=== PATIENT | male | born 1955 | race Caucasian/White ===

== ENCOUNTER 2017-03-05 13:43 | Emergency (ER) | payer OTHER ==
[~2017-03-05] VITALS: Ht 175.3 cm; Wt 100.0 kg
[~2017-03-05 13:43] MED LIST: ALBU8I INH; ALLO100T PO; ASPI81TA45 PO; BACL10TA PO; BUPR-197 PO; CLIN1CAP5 PO; DUONI NEB; FURO1TAB93 PO; GLUC10TA3 PO; METO100T PO; NAPR-576 PO; NOVONP2 SQ; OMEP20TA PO; OXYC5 PO; REST30CA PO; SERT-129 PO; SIMV20 PO; SYMB80AE INH; ZYRT10TA12 PO
[2017-03-05 13:46] VITALS: BP 161/73; PULSE 61; RESP 13; TEMP 97.4
[2017-03-05 14:53] VITALS: BP 143/74; PULSE 57; RESP 19; O2SAT 97
[2017-03-05] MEDS ORDERED: METO100T PO ×2 (15:08→15:18)
[2017-03-05] MEDS ORDERED: BACL10TA PO ×2 (15:08→15:18)
[2017-03-05] MEDS ORDERED: ALLO100T PO ×2 (15:08→15:18)
[2017-03-05] MEDS ORDERED: SERT-129 PO (15:08)
[2017-03-05] MEDS ORDERED: FURO1TAB93 PO (15:08)
[2017-03-05] MEDS ORDERED: ALBU8I INH (15:08)
[2017-03-05] MEDS ORDERED: OXYC5 PO (15:08)
[2017-03-05] MEDS ORDERED: GLUC10TA3 PO (15:08)
[2017-03-05] MEDS ORDERED: ASPI81TA45 PO (15:08)
[2017-03-05] MEDS ORDERED: ZYRT10TA12 PO (15:08)
[2017-03-05] MEDS ORDERED: OMEP20TA PO (15:08)
[2017-03-05] MEDS ORDERED: REST30CA PO ×2 (15:08→15:18)
[2017-03-05] MEDS ORDERED: NOVONP2 SQ ×2 (15:08→15:18)
[2017-03-05] MEDS ORDERED: SIMV20 PO (15:08)
[2017-03-05] MEDS ORDERED: SYMB80AE INH ×2 (15:08→15:18)
[2017-03-05] MEDS ORDERED: NAPR-576 PO (15:08)
[2017-03-05] MEDS ORDERED: BUPR-197 PO (15:08)
[2017-03-05] MEDS ORDERED: ASPI81TA11 PO (15:18)
[2017-03-05] MEDS ORDERED: OXYC1CAP PO (15:18)
[2017-03-05] MEDS ORDERED: PRIL20TA2 PO (15:18)
[2017-03-05] MEDS ORDERED: BUPR100T4 PO (15:18)
[2017-03-05] MEDS ORDERED: GLIP10TA6 PO (15:18)
[2017-03-05] MEDS ORDERED: ZOLO100T PO (15:18)
[2017-03-05] MEDS ORDERED: CETI10 PO (15:18)
[2017-03-05] MEDS ORDERED: ZOCO10TA PO (15:18)
[2017-03-05] MEDS ORDERED: VENTAER INH (15:18)
[2017-03-05] MEDS ORDERED: NAPR500 PO (15:18)
--- NOTE | 2017-03-05 15:20 | PD ---
HPI Chief Complaint: Abnormal Results Time Seen by Provider: 14:34 Travel History International Travel<30 days: No Contact w/Intl Traveler<30days: No Traveled to known affect area: No History of Present Illness HPI 61-year-old male came to the emergency room with history of abnormal blood test result that was told to him by his doctor's office from [facility] after he had his blood drawn this morning. He was told that his potassium was 6.4 and that he should go to the emergency room. Patient says he feels otherwise fine. He does not have any history of kidney disease that he knows of. He does have history of diabetes. However he says his sugar has been under control. He is not on any potassium supplements. His vital signs were within acceptable limits. [facility] Past Medical History Narrative Medical List of his past medical, surgical, social and family history is reviewed from the nursing note. Hx Anticoagulant Therapy: Yes (ASPIRIN) Arthritis: Yes Asthma: Yes Autoimmune Disease: No Blood Disorders: No Anxiety: No Depression: Yes Heart Rhythm Problems: Yes Cancer: No Cardiac Catheterization: Yes (2004) Cardiovascular Problems: Yes High Cholesterol: No Chemotherapy: No Chest Pain: Yes Congestive Heart Failure: Yes COPD: Yes Cerebrovascular Accident: No Diabetes: Yes Patient Takes Glucophage: Yes Diminished Hearing: No Endocrine: Yes Gastrointestinal Disorders: Yes GERD: No Glaucoma: No Genitourinary: No Headaches: No Hepatitis: Yes (TYPE C- treated) Hiatal Hernia: No Hypertension: Yes Immune Disorder: No Implanted Vascular Access Dvce: Yes Kidney Stones: No Musculoskeletal: Yes Neurologic: Yes Psychiatric: Yes Reproductive: No Respiratory: Yes Migraines: No Myocardial Infarction: Yes Radiation Therapy: No Renal Failure: No Seizures: Yes Sickle Cell Disease: No Sleep Apnea: No Thyroid Disease: No Ulcer: No PNEUMOCCOCAL Vaccine (Year): 2 Past Surgical History Abdominal Surgery: No AICD: No Appendectomy: No Arteriovenous Shunt: No Body Medical Devices: rods and cage in back Cardiac Surgery: Yes (CABG X6 VESSEL IN 2004 "AROUND " ) Cholecystectomy: No Coronary Artery Bypass Graft: Yes (X 6 IN 2004) Ear Surgery: No Eye Surgery: No Genitourinary Surgery: No Gynecologic Surgery: No Insulin Pump: No Joint Replacement: Yes (RODS AND CAGE IN LUMBAR SECTION OF BACK ) Neurologic Surgery: Yes (BACK SURGERY X2 LUMBAR REGION) Oral Surgery: No Pacemaker: No Thoracic Surgery: No Other Surgery: Yes Social History Alcohol Use: No Tobacco Use: No Substance Use: No Allergies-Medications (Allergen,Severity, Reaction): Coded Allergies: morphine (Unverified Allergy, Severe, Itching, 03/05/17) ITCHING Comments List of his allergies reviewed from the nursing note. Reported Meds & Prescriptions Reported Meds & Active Scripts Active Reported Oxycodone (Oxycodone HCl) 10 Mg Tab 15 Mg PO Q8H PRN Restoril (Temazepam) 30 Mg Cap 30 Mg PO HS Zocor (Simvastatin) 10 Mg Tab 10 Mg PO HS Zoloft (Sertraline HCl) 100 Mg Tab 200 Mg PO BID Prilosec (Omeprazole Magnesium) 20 Mg Tab 20 Mg PO DAILY Naprosyn (Naproxen) 500 Mg Tab 500 Mg PO BID Metoprolol Tartrate 100 Mg Tab 100 Mg PO BID Novolin N Inj (Insulin Human NPH) 100 Unit/Ml Inj 26 Units SQ BID Glipizide 10 Mg Tab 10 Mg PO DAILY Take 30 minutes before a meal Cetirizine (Cetirizine HCl) 10 Mg Tab 10 Mg PO DAILY Bupropion HCl 100 Mg Tab 200 Mg PO BID Symbicort Inh (Budesonide/Formoterol Fumarate) 80-4.5 Mcg/Act Aero 2 Puff INH Q12HR Baclofen 10 Mg Tab 10 Mg PO BID Aspirin EC (Aspirin) 81 Mg Tabdr 81 Mg PO DAILY Allopurinol 100 Mg Tab 100 Mg PO DAILY Ventolin Hfa 18 GM Inh (Albuterol Sulfate) 90 Mcg/Act Aer 2 Puff INH TID PRN Narrative Medication List of his home medications reviewed from the nursing note. Review of Systems Except as stated in HPI: all other systems reviewed are Neg Physical Exam Narrative GENERAL: Awake, alert, no obvious distress SKIN: Focused skin assessment warm/dry. HEAD: Atraumatic. Normocephalic. EYES: Pupils equal and round. No scleral icterus. No injection or drainage. ENT: No nasal bleeding or discharge. Mucous membranes pink and moist. NECK: Trachea midline. No JVD. CARDIOVASCULAR: Regular rate and rhythm. No murmur appreciated. RESPIRATORY: No accessory muscle use. Clear to auscultation. Breath sounds equal bilaterally. GASTROINTESTINAL: Abdomen soft, non-tender, nondistended. Hepatic and splenic margins not palpable. MUSCULOSKELETAL: No obvious deformities. No clubbing. No cyanosis. 1+ pitting edema bilaterally. NEUROLOGICAL: Awake and alert. No obvious cranial nerve deficits. Motor grossly within normal limits. Normal speech. PSYCHIATRIC: Appropriate mood and affect; insight and judgment normal. Data Data Last Documented VS Vital Signs Date Time Temp Pulse Resp B/P (MAP) Pulse Ox O2 Delivery O2 Flow Rate FiO2 03/05/17 20:46 03/05/17 14:53 57 19 97 Room Air 03/05/17 13:46 97.4 Orders Orders Electrocardiogram (03/05/17 14:09) Complete Blood Count With Diff (03/05/17 14:09) Basic Metabolic Panel (Bmp) (03/05/17 14:09) Ckmb (Isoenzyme) Profile (03/05/17 14:09) Troponin I (03/05/17 14:09) CKMB (03/05/17 14:53) CKMB% (03/05/17 14:53) Calcium Gluconate Inj (Calcium Gluconate (03/05/17 16:45) Sodium Polysty Sulfate Liq (Kayexalate L (03/05/17 16:45) Insulin Human Regular Inj (Novolin R Inj (03/05/17 16:45) Dextrose 50% In Evie (Vial) Inj (D50w (Vi (03/05/17 16:45) Acetamin-Hydrocod 325-5 Mg (Stanton 5-325 (03/05/17 16:45) Dextrose 50% In Evie (Syr) Inj (D50w (Syr (03/05/17 16:51) Dextrose 50% In Evie (Syr) Inj (D50w (Syr (03/05/17 17:15) Dextrose 50% In Evie (Syr) Inj (D50w (Syr (03/05/17 17:13) Potassium, Serum (K) (03/05/17 18:01) Blood Glucose (03/05/17 18:01) Dextrose 50% In Evie (Syr) Inj (D50w (Syr (03/05/17 18:30) Labs Laboratory Tests Test 03/05/17 14:53 03/05/17 19:31 White Blood Count 10.6 TH/MM3 Red Blood Count 4.58 MIL/MM3 Hemoglobin 13.4 GM/DL Hematocrit 40.6 % Mean Corpuscular Volume 88.6 FL Mean Corpuscular Hemoglobin 29.3 PG Mean Corpuscular Hemoglobin Concent 33.0 % Red Cell Distribution Width 16.0 % Platelet Count 263 TH/MM3 Mean Platelet Volume 10.1 FL Neutrophils (%) (Auto) 65.0 % Lymphocytes (%) (Auto) 21.4 % Monocytes (%) (Auto) 7.2 % Eosinophils (%) (Auto) 5.6 % Basophils (%) (Auto) 0.8 % Neutrophils # (Auto) 6.9 TH/MM3 Lymphocytes # (Auto) 2.3 TH/MM3 Monocytes # (Auto) 0.8 TH/MM3 Eosinophils # (Auto) 0.6 TH/MM3 Basophils # (Auto) 0.1 TH/MM3 CBC Comment DIFF FINAL Differential Comment Blood Urea Nitrogen 28 MG/DL Creatinine 1.12 MG/DL Random Glucose 135 MG/DL Calcium Level 9.3 MG/DL Sodium Level 134 MEQ/L Potassium Level 5.5 MEQ/L 4.7 MEQ/L Chloride Level 102 MEQ/L Carbon Dioxide Level 23.2 MEQ/L Anion Gap 9 MEQ/L Estimat Glomerular Filtration Rate 67 ML/MIN Total Creatine Kinase 131 U/L Creatine Kinase MB 4.9 NG/ML Troponin I LESS THAN 0.02 NG/ML MDM Medical Decision Making Medical Screen Exam Complete: Yes Emergency Medical Condition: Yes Medical Record Reviewed: Yes Interpretation(s) Twelve-lead EKG was reviewed by me. Normal sinus rhythm, normal axis, nonspecific ST-T wave changes, bradycardia. Heart rate of 57 bpm. Differential Diagnosis Hyperkalemia, lab error, acute renal failure Narrative Course 5:11 PM blood test results of come back. Potassium is mildly elevated. I have ordered 1 g of calcium gluconate, 10 units of IV insulin and 50 mL of D50. Patient's potassium and glucose would be repeated after 1 hour of administration. If they have return to normal level he will be discharged home. Procedures EKG Prior to Arrival: No Diagnosis Primary Impression: Hyperkalemia Yovani Baker MD Mar 05, 2017 15:20
[2017-03-05 15:58] LABS: AUTOMATED NEUTROPHIL # 6.9 TH/MM3 (1.8-7.7); BASOPHIL # 0.1 TH/MM3 (0-0.2); BASOPHIL % 0.8 % (0.0-2.0); EOSINOPHIL # 0.6 TH/MM3 (0-0.4); EOSINOPHIL % 5.6 % (0.0-4.0); HEMATOCRIT 40.6 % (39.0-51.0); HEMO FLAGS DIFF FINAL; LYMPH % 21.4 % (9.0-44.0); LYMPHOCYTE # 2.3 TH/MM3 (1.0-4.8); MEAN CELL VOLUME 88.6 FL (80.0-100.0); MEAN CORPUSCULAR HEMOGLOBIN 29.3 PG (27.0-34.0); MONO % 7.2 % (0.0-8.0); PLATELET COUNT 263 TH/MM3 (150-450); RED BLOOD COUNT 4.58 MIL/MM3 (4.50-5.90); WHITE BLOOD COUNT 10.6 TH/MM3 (4.0-11.0)
[2017-03-05 16:20] LABS: ANION GAP 9 MEQ/L (5-15); BICARBONATE 23.2 MEQ/L (21.0-32.0); BLOOD UREA NITROGEN 28 MG/DL (7-18); CHLORIDE 102 MEQ/L (98-107); GLOMERULAR FILTRATION RATE 67 ML/MIN (>89); POTASSIUM 5.5 MEQ/L (3.5-5.1); SODIUM (NA) 134 MEQ/L (136-145)
[2017-03-05 16:23] LABS: CREATINE KINASE 131 U/L (39-308)
[2017-03-05 16:35] LABS: CKMB 4.9 NG/ML (0.5-3.6)
[2017-03-05] MEDS ORDERED: OXYC-395 PO (16:36)
[2017-03-05] MEDS ORDERED: SODIUM POLYSTYRENE SULFONATE SUSP 15 GM/60 ML CUP PO ONE (16:45)
[2017-03-05] MEDS ORDERED: CALCIUM GLUCONATE INJ 1 GM in DEXTROSE 5% IN WATER 100ML INJ 100 ML IV ONE ×2 (16:45)
[2017-03-05] MEDS ORDERED: DEXTROSE 50% IN WATER 50 ML VIAL(D50) IV PUSH ONE (16:45)
[2017-03-05] MEDS ORDERED: ACETAMINOPHEN/HYDROcodone 325 MG/5 MG TAB PO ONE (16:45)
[2017-03-05] MEDS ORDERED: INSULIN HUMAN REGULAR 1,000 UNITS/10 ML VIAL IV PUSH ONE (16:45)
[2017-03-05] MEDS ORDERED: DEXTROSE 50% IN WATER 50 ML SYRINGE ONE ×2 (16:51→17:13)
[2017-03-05] MEDS ORDERED: DEXTROSE 50% IN WATER 50 ML SYRINGE IV ONE ×2 (17:15→18:30)
--- NOTE | 2017-03-05 19:03 | PD ---
Physical Exam Date Seen by Provider: Mar 05, 2017 Time Seen by Provider: 19:00 Narrative The patient is a 61-year-old male was initially evaluated by the previous physician, Dr. Baker. Please refer to the initial history, physical, diagnostic evaluation, and treatment modality plan. The patient was signed out at 7 PM with repeat potassium pending. (Charlie Kang MD) Data Data Last Documented VS Vital Signs Date Time Temp Pulse Resp B/P (MAP) Pulse Ox O2 Delivery O2 Flow Rate FiO2 03/05/17 14:53 57 19 143/74 (97) 97 Room Air 03/05/17 13:46 97.4 (Doretha Pineda) Orders Orders Electrocardiogram (03/05/17 14:09) Complete Blood Count With Diff (03/05/17 14:09) Basic Metabolic Panel (Bmp) (03/05/17 14:09) Ckmb (Isoenzyme) Profile (03/05/17 14:09) Troponin I (03/05/17 14:09) CKMB (03/05/17 14:53) CKMB% (03/05/17 14:53) Calcium Gluconate Inj (Calcium Gluconate (03/05/17 16:45) Sodium Polysty Sulfate Liq (Kayexalate L (03/05/17 16:45) Insulin Human Regular Inj (Novolin R Inj (03/05/17 16:45) Dextrose 50% In Evie (Vial) Inj (D50w (Vi (03/05/17 16:45) Acetamin-Hydrocod 325-5 Mg ([place]wick 5-325 (03/05/17 16:45) Dextrose 50% In Evie (Syr) Inj (D50w (Syr (03/05/17 16:51) Dextrose 50% In Evie (Syr) Inj (D50w (Syr (03/05/17 17:15) Dextrose 50% In Evie (Syr) Inj (D50w (Syr (03/05/17 17:13) Potassium, Serum (K) (03/05/17 18:01) Blood Glucose (03/05/17 18:01) Dextrose 50% In Evie (Syr) Inj (D50w (Syr (03/05/17 18:30) (Doretha Pineda) Labs Laboratory Tests Test 03/05/17 14:53 03/05/17 19:31 White Blood Count 10.6 TH/MM3 Red Blood Count 4.58 MIL/MM3 Hemoglobin 13.4 GM/DL Hematocrit 40.6 % Mean Corpuscular Volume 88.6 FL Mean Corpuscular Hemoglobin 29.3 PG Mean Corpuscular Hemoglobin Concent 33.0 % Red Cell Distribution Width 16.0 % Platelet Count 263 TH/MM3 Mean Platelet Volume 10.1 FL Neutrophils (%) (Auto) 65.0 % Lymphocytes (%) (Auto) 21.4 % Monocytes (%) (Auto) 7.2 % Eosinophils (%) (Auto) 5.6 % Basophils (%) (Auto) 0.8 % Neutrophils # (Auto) 6.9 TH/MM3 Lymphocytes # (Auto) 2.3 TH/MM3 Monocytes # (Auto) 0.8 TH/MM3 Eosinophils # (Auto) 0.6 TH/MM3 Basophils # (Auto) 0.1 TH/MM3 CBC Comment DIFF FINAL Differential Comment Blood Urea Nitrogen 28 MG/DL Creatinine 1.12 MG/DL Random Glucose 135 MG/DL Calcium Level 9.3 MG/DL Sodium Level 134 MEQ/L Potassium Level 5.5 MEQ/L 4.7 MEQ/L Chloride Level 102 MEQ/L Carbon Dioxide Level 23.2 MEQ/L Anion Gap 9 MEQ/L Estimat Glomerular Filtration Rate 67 ML/MIN Total Creatine Kinase 131 U/L Creatine Kinase MB 4.9 NG/ML Troponin I LESS THAN 0.02 NG/ML (Doretha Pineda) [facility] Medical Record Reviewed: Yes Supervised Visit with ALVAREZ: No Interpretation(s) EKG revealed sinus bradycardia with a heart rate of 57. Q wave noted in lead 3. No Peaked T waves noted. Laboratory Tests Test 03/05/17 14:53 03/05/17 19:31 White Blood Count 10.6 TH/MM3 Red Blood Count 4.58 MIL/MM3 Hemoglobin 13.4 GM/DL Hematocrit 40.6 % Mean Corpuscular Volume 88.6 FL Mean Corpuscular Hemoglobin 29.3 PG Mean Corpuscular Hemoglobin Concent 33.0 % Red Cell Distribution Width 16.0 % Platelet Count 263 TH/MM3 Mean Platelet Volume 10.1 FL Neutrophils (%) (Auto) 65.0 % Lymphocytes (%) (Auto) 21.4 % Monocytes (%) (Auto) 7.2 % Eosinophils (%) (Auto) 5.6 % Basophils (%) (Auto) 0.8 % Neutrophils # (Auto) 6.9 TH/MM3 Lymphocytes # (Auto) 2.3 TH/MM3 Monocytes # (Auto) 0.8 TH/MM3 Eosinophils # (Auto) 0.6 TH/MM3 Basophils # (Auto) 0.1 TH/MM3 CBC Comment DIFF FINAL Differential Comment Blood Urea Nitrogen 28 MG/DL Creatinine 1.12 MG/DL Random Glucose 135 MG/DL Calcium Level 9.3 MG/DL Sodium Level 134 MEQ/L Potassium Level 5.5 MEQ/L 4.7 MEQ/L Chloride Level 102 MEQ/L Carbon Dioxide Level 23.2 MEQ/L Anion Gap 9 MEQ/L Estimat Glomerular Filtration Rate 67 ML/MIN Total Creatine Kinase 131 U/L Creatine Kinase MB 4.9 NG/ML Troponin I LESS THAN 0.02 NG/ML Differential Diagnosis Differential diagnosis includes hyperkalemia, hemolysis, lab error, medication side effect, acute renal insufficiency, rhabdomyolysis. Narrative Course The patient was initially evaluated by the previous physician, Dr. Baker. Please refer to the initial history, physical, diagnostic evaluation, and treatment modality plan. The patient was signed out at 7 PM with repeat potassium level pending. I reviewed the labs, there was no obvious source of the patient's hyperkalemia from medications. The patient's repeat potassium was 4.7, patient is stable for outpatient follow-up. (Charlie Kang MD) Diagnosis Primary Impression: Hyperkalemia Referrals: Primary Care Physician Patient Instructions: General Instructions, Hyperkalemia (ED) Additional Instruction: Follow-up with your primary care provider Return immediately with any acute worsening of symptoms Disposition: 01 DISCHARGE HOME Condition: Stable Charlie Kang MD Mar 05, 2017 19:03 Doretha Pineda Mar 05, 2017 20:43
--- NOTE | 2017-03-06 19:58 | EKG ---
Date Performed: 03/05/2017 Time Performed: 15:16:10 PTAGE: 61 years EKG: SINUS BRADYCARDIA POSSIBLE INFERIOR MYOCARDIAL INFARCTION BORDERLINE ECG PREVIOUS TRACING : 09/11/2011 13.42 Compared to prior tracing no significant change DOCTOR: Vanessa Hawkins Interpretating Date/Time 03/06/2017 19:56:38
== END 2017-03-05 23:50 | disposition home or self-care (01) ==
LOC: NEPE 13:43
DX: E87.5 Hyperkalemia (principal); I50.9 Heart failure, unspecified; I11.0 Hypertensive heart disease with heart failure; J44.9 Chronic obstructive pulmonary disease, unspecified; E11.9 Type 2 diabetes mellitus without complications; I25.2 Old myocardial infarction; Z95.1 Presence of aortocoronary bypass graft; Z79.84 Long term (current) use of oral hypoglycemic drugs; R00.1 Bradycardia, unspecified; Z79.4 Long term (current) use of insulin
CPT/HCPCS: 80048; 82550; 82552; 84132; 84484; 85025; 93005; 96365; 96375; 96376; 99284; J0610; J1815

== ENCOUNTER 2017-04-03 13:57 | Emergency (ER) | payer OTHER ==
[~2017-04-03 13:57] MED LIST changes: -ALBU8I INH; +ASPI81TA11 PO; -ASPI81TA45 PO; -BUPR-197 PO; +BUPR100T4 PO; +CETI10 PO; -CLIN1CAP5 PO; -DUONI NEB; -FURO1TAB93 PO; +GLIP10TA6 PO; -GLUC10TA3 PO; -NAPR-576 PO; +NAPR500 PO; -OMEP20TA PO; +OXYC-395 PO; -OXYC5 PO; +PRIL20TA2 PO; -SERT-129 PO; -SIMV20 PO; +VENTAER INH; +ZOCO10TA PO; +ZOLO100T PO; -ZYRT10TA12 PO
[2017-04-03 14:04] VITALS: BP 177/77; PULSE 78; RESP 16; TEMP 98.5; O2SAT 97
[2017-04-03] MEDS ORDERED: KETOROLAC TROMETHAMINE 60 MG/2 ML (IM) VIAL IM ONE (14:30)
[2017-04-03] MEDS ORDERED: HYDROmorphone HCL PF 1 MG/ML VIAL IM ONE (14:30)
--- NOTE | 2017-04-03 14:50 | RADRPT ---
EXAM DATE/TIME: 04/03/2017 14:45 [facility] COMPARISON: SPINE LUMBAR LTD (AP & LAT), October 10, 2015, 11:28. INDICATIONS : Low back pain. Patient complains of low back pain, bilateral hip pain and shooting pain that runs aparna n his legs. MEDICAL HISTORY : None. SURGICAL HISTORY : Back fusion, lumbar. ENCOUNTER: Initial ACUITY: 1 day PAIN SCORE: 10/10 LOCATION: Bilateral Back, hip, and leg pain. FINDINGS: Two view examination was performed. There are five non-rib bearing vertebral bodies. Extensive bilat eral transpedicular fixation from L2-S1 and bony fusion, unchanged. Degenerative disc disease at T12- L1 and L1-2 with loss of disc height and marginal spurring. No fracture or listhesis. Hardware appear s to be intact. Atherosclerotic calcification of the regional vasculature. CONCLUSION: 1. Extensive transpedicular fixation and bony fusion bilaterally from L2-S1. 2. Degenerative disc disease most prominent at the thoracolumbar junction and L1-2, the superior kori on segment. 3. Severe atherosclerotic calcification of the regional vasculature. Daryl Sparks MD on April 03, 2017 at 14:44 Board Certified Radiologist. This report was verified electronically.
--- NOTE | 2017-04-03 15:08 | PD ---
HPI Chief Complaint: Pain: Acute or Chronic Time Seen by Provider: 14:09 Travel History International Travel<30 days: No Contact w/Intl Traveler<30days: No Traveled to known affect area: No History of Present Illness HPI This is a 61-year-old male who has a history of low back surgery many years ago who presents to the emergency department with 4 days of increasing low back pain described as in both of his buttock areas radiating down both legs, constant, severe, worse when getting from sitting to standing. He denies any numbness or weakness in his legs. He's had no urinary incontinence or retention and no bowel incontinence. He says this feels similar to his chronic low back pain prior to his surgeries. He has had no recent injury. He takes oxycodone for pain but that's not been helping. PFSH Past Medical History Hx Anticoagulant Therapy: Yes (ASPIRIN) Arthritis: Yes Asthma: Yes Autoimmune Disease: No Blood Disorders: No Anxiety: No Depression: Yes Heart Rhythm Problems: Yes Cancer: No Cardiac Catheterization: Yes (2004) Cardiovascular Problems: Yes High Cholesterol: No Chemotherapy: No Chest Pain: Yes Congestive Heart Failure: Yes COPD: Yes Cerebrovascular Accident: No Diabetes: Yes Patient Takes Glucophage: Yes Diminished Hearing: No Endocrine: Yes Gastrointestinal Disorders: Yes GERD: No Glaucoma: No Genitourinary: No Headaches: No Hepatitis: Yes (TYPE C- treated) Hiatal Hernia: No Heparin Induced Thrombocytopen: No Hypertension: Yes Immune Disorder: No Implanted Vascular Access Dvce: Yes Kidney Stones: No Musculoskeletal: Yes Neurologic: Yes Psychiatric: Yes Reproductive: No Respiratory: Yes Migraines: No Myocardial Infarction: Yes Radiation Therapy: No Renal Failure: No Seizures: Yes Sickle Cell Disease: No Sleep Apnea: No Thyroid Disease: No Ulcer: No PNEUMOCCOCAL Vaccine (Year): 2 Past Surgical History Abdominal Surgery: No AICD: No Appendectomy: No Arteriovenous Shunt: No Body Medical Devices: rods and cage in back Cardiac Surgery: Yes (CABG X6 VESSEL IN 2004 "AROUND " ) Cholecystectomy: No Coronary Artery Bypass Graft: Yes (X 6 IN 2004) Ear Surgery: No Eye Surgery: No Genitourinary Surgery: No Gynecologic Surgery: No Insulin Pump: No Joint Replacement: Yes (RODS AND CAGE IN LUMBAR SECTION OF BACK ) Neurologic Surgery: Yes (BACK SURGERY X2 LUMBAR REGION) Oral Surgery: No Pacemaker: No Thoracic Surgery: No Other Surgery: Yes Social History Alcohol Use: No Tobacco Use: No Substance Use: No Allergies-Medications (Allergen,Severity, Reaction): Coded Allergies: morphine (Verified Allergy, Severe, Itching, 04/03/17) ITCHING Reported Meds & Prescriptions Reported Meds & Active Scripts Active Reported Oxycodone (Oxycodone HCl) 10 Mg Tab 15 Mg PO Q8H PRN Restoril (Temazepam) 30 Mg Cap 30 Mg PO HS Zocor (Simvastatin) 10 Mg Tab 10 Mg PO HS Zoloft (Sertraline HCl) 100 Mg Tab 200 Mg PO BID Prilosec (Omeprazole Magnesium) 20 Mg Tab 20 Mg PO DAILY Naprosyn (Naproxen) 500 Mg Tab 500 Mg PO BID Metoprolol Tartrate 100 Mg Tab 100 Mg PO BID Novolin N Inj (Insulin Human NPH) 100 Unit/Ml Inj 26 Units SQ BID Glipizide 10 Mg Tab 10 Mg PO DAILY Take 30 minutes before a meal Cetirizine (Cetirizine HCl) 10 Mg Tab 10 Mg PO DAILY Bupropion HCl 100 Mg Tab 200 Mg PO BID Symbicort Inh (Budesonide/Formoterol Fumarate) 80-4.5 Mcg/Act Aero 2 Puff INH Q12HR Baclofen 10 Mg Tab 10 Mg PO BID Aspirin EC (Aspirin) 81 Mg Tabdr 81 Mg PO DAILY Allopurinol 100 Mg Tab 100 Mg PO DAILY Ventolin Hfa 18 GM Inh (Albuterol Sulfate) 90 Mcg/Act Aer 2 Puff INH TID PRN Review of Systems Except as stated in HPI: all other systems reviewed are Neg Physical Exam Narrative GENERAL:Well appearing, no acute distress SKIN: Focused skin assessment warm and dry. HEAD: Atraumatic. Normocephalic. EYES: Pupils equal and round. No injection or drainage. ENT: Moist mucous membranes NECK: Trachea midline. CARDIOVASCULAR: Regular rate and rhythm. No murmur appreciated. RESPIRATORY: Clear to auscultation. Breath sounds equal bilaterally. GASTROINTESTINAL: Abdomen soft, non-tender, nondistended. MUSCULOSKELETAL: Tender to palpation over the vertebral lower lumbar spine NEUROLOGICAL: Awake and alert. No obvious cranial nerve deficits. 5 out of 5 strength in the bilateral lower extremities with grossly intact sensation. PSYCHIATRIC: Appropriate mood and affect; insight and judgment normal. Data Data Last Documented VS Vital Signs Date Time Temp Pulse Resp B/P (MAP) Pulse Ox O2 Delivery O2 Flow Rate FiO2 04/03/17 14:04 98.5 78 16 177/77 (110) 97 Room Air Orders Orders Ketorolac Inj (Toradol Inj) (04/03/17 14:30) Hydromorphone Pf Inj (Dilaudid Pf Inj) (04/03/17 14:30) Spine, Lumbar - Ltd (Ap & Lat) (04/03/17 ) MDM Medical Decision Making Medical Screen Exam Complete: Yes Emergency Medical Condition: Yes Interpretation(s) Afebrile, no tachycardia, hypertensive Last 24 hours Impressions Lumbar Spine X-Ray 04/03/17 0000 Signed Impressions: Service Date/Time: Monday, April 03, 2017 14:45 - CONCLUSION: 1. Extensive transpedicular fixation and bony fusion bilaterally from L2-S1. 2. Degenerative disc disease most prominent at the thoracolumbar junction and L1-2 , the superior motion segment. 3. Severe atherosclerotic calcification of the regional vasculature. Daryl Sparks MD Differential Diagnosis Degenerative disc disease, acute disc herniation, cauda equina syndrome Narrative Course This is a 61-year-old male who presents to the emergency department with low back pain that started several days ago. He has a history of chronic back pain and has had a fusion in the past. Patient has a normal neurologic exam and has no red flag symptoms times for cauda equina syndrome. Patient was given IM hydromorphone and Toradol. I think he can be discharged home with continued pain control. Diagnosis Primary Impression: Low back pain Qualified Codes: M54.5 - Low back pain Referrals: Sam Elizabeth MD Patient Instructions: General Instructions Additional Instructions: If you develop weakness of your legs, difficulty walking, numbness of your legs or your genital or rectal area, loss of your bowel or bladder, or difficulty urinating return to the emergency department immediately. Followup with your primary care physician in one week if your symptoms have not improved. Med/Other Pt SpecificInfo: No Change to Meds Disposition: 01 DISCHARGE HOME Condition: Stable Jessica Natarajan MD Apr 03, 2017 15:08
== END 2017-04-03 15:49 | disposition home or self-care (01) ==
LOC: NEPD 13:57
DX: M54.5 Low back pain (principal); M79.604 Pain in right leg; M79.605 Pain in left leg; E11.9 Type 2 diabetes mellitus without complications; I10 Essential (primary) hypertension; I25.2 Old myocardial infarction; Z79.82 Long term (current) use of aspirin; Z79.4 Long term (current) use of insulin; Z87.39 Personal history of other diseases of the musculoskeletal system and connective tissue; Z87.09 Personal history of other diseases of the respiratory system; Z86.59 Personal history of other mental and behavioral disorders; Z86.79 Personal history of other diseases of the circulatory system; Z87.19 Personal history of other diseases of the digestive system; Z86.19 Personal history of other infectious and parasitic diseases; Z86.69 Personal history of other diseases of the nervous system and sense organs
CPT/HCPCS: 72100; 96372; 99284; J1170; J1885

== ENCOUNTER 2017-12-17 04:06 | Inpatient (IN) | payer OTHER ==
[2017-12-17] VITALS (31 sets, daily range): BP systolic 78–204; BP diastolic 44–101; PULSE 62–104; RESP 12–20; TEMP 98.1–98.4; O2SAT 96–100
[~2017-12-17] VITALS: Ht 175.3 cm; Wt 99.0 kg
[~2017-12-17 04:06] MED LIST changes: -ASPI81TA11 PO; +ASPI81TA23 PO
--- NOTE | 2017-12-17 04:21 | PD ---
HPI Chief Complaint: Overdose Time Seen by Provider: 04:12 Travel History International Travel<30 days: No Contact w/Intl Traveler<30days: No Traveled to known affect area: No History of Present Illness HPI The patient is a 62-year-old male who presents to the emergency department via EMS with police as a Hanson act after unintentional overdose. According to EMS the patient has been binge drinking over the last several days , heavily per the report, when the patient took 21 oxycodone pills prior to arrival. EMS was unable to find the bottle of oxycodone, are unsure if the pills all. They do note the patient was a somewhat limited historian and most information was taken from the . The estimated that the patient took the pills at approximately 2:45 AM. The patient does complain of low back pain , chronic, worse after he fell. EMS also noted the patient had a laceration to the right frontal forehead just above the eyebrow. The patient is a somewhat limited historian who appears intoxicated. EMS did administer Narcan intravenously prior to the patient's arrival, they noted his mental status improved after Narcan was administered from a GCS of 10 to a GCS of 14. The patient cannot tell me exactly what type of oxycodone pills he took earlier today. PFSH Past Medical History Hx Anticoagulant Therapy: Yes (ASPIRIN) Arthritis: Yes Asthma: Yes Autoimmune Disease: No Blood Disorders: No Anxiety: No Depression: Yes Heart Rhythm Problems: Yes Cancer: No Cardiac Catheterization: Yes (2004) Cardiovascular Problems: Yes High Cholesterol: No Chemotherapy: No Chest Pain: Yes Congestive Heart Failure: Yes COPD: Yes Cerebrovascular Accident: No Diabetes: Yes Diminished Hearing: No Endocrine: Yes Gastrointestinal Disorders: Yes GERD: No Glaucoma: No Genitourinary: No Headaches: No Hepatitis: Yes (TYPE C- treated) Hiatal Hernia: No Heparin Induced Thrombocytopen: No Hypertension: Yes Immune Disorder: No Implanted Vascular Access Dvce: Yes Kidney Stones: No Musculoskeletal: Yes Neurologic: Yes Psychiatric: Yes Reproductive: No Respiratory: Yes Migraines: No Myocardial Infarction: Yes Radiation Therapy: No Renal Failure: No Seizures: Yes Sickle Cell Disease: No Sleep Apnea: No Thyroid Disease: No Ulcer: No PNEUMOCCOCAL Vaccine (Year): 2 Past Surgical History Abdominal Surgery: No AICD: No Appendectomy: No Arteriovenous Shunt: No Body Medical Devices: rods and cage in back Cardiac Surgery: Yes (CABG X6 VESSEL IN 2005 "AROUND EASTER" ) Cholecystectomy: No Coronary Artery Bypass Graft: Yes (X 6 IN 2005) Ear Surgery: No Eye Surgery: No Genitourinary Surgery: No Gynecologic Surgery: No Insulin Pump: No Joint Replacement: Yes (RODS AND CAGE IN LUMBAR SECTION OF BACK ) Neurologic Surgery: Yes (BACK SURGERY X2 LUMBAR REGION) Oral Surgery: No Pacemaker: No Thoracic Surgery: No Other Surgery: Yes Social History Alcohol Use: No Tobacco Use: No Substance Use: No Allergies-Medications (Allergen,Severity, Reaction): Coded Allergies: morphine (Verified Allergy, Severe, Itching, 04/03/17) ITCHING Reported Meds & Prescriptions Reported Meds & Active Scripts Active Reported Oxycodone (Oxycodone HCl) 10 Mg Tab 15 Mg PO Q8H PRN Restoril (Temazepam) 30 Mg Cap 30 Mg PO HS Zocor (Simvastatin) 10 Mg Tab 10 Mg PO HS Zoloft (Sertraline HCl) 100 Mg Tab 200 Mg PO BID Prilosec (Omeprazole Magnesium) 20 Mg Tab 20 Mg PO DAILY Naprosyn (Naproxen) 500 Mg Tab 500 Mg PO BID Metoprolol Tartrate 100 Mg Tab 100 Mg PO BID Novolin N Inj (Insulin Human NPH) 100 Unit/Ml Inj 26 Units SQ BID Glipizide 10 Mg Tab 10 Mg PO DAILY Take 30 minutes before a meal Cetirizine (Cetirizine HCl) 10 Mg Tab 10 Mg PO DAILY Bupropion HCl 100 Mg Tab 200 Mg PO BID Symbicort Inh (Budesonide/Formoterol Fumarate) 80-4.5 Mcg/Act Aero 2 Puff INH Q12HR Baclofen 10 Mg Tab 10 Mg PO BID Aspirin EC (Aspirin) 81 Mg Tabdr 81 Mg PO DAILY Allopurinol 100 Mg Tab 100 Mg PO DAILY Ventolin Hfa 18 GM Inh (Albuterol Sulfate) 90 Mcg/Act Aer 2 Puff INH TID PRN Review of Systems Except as stated in HPI: all other systems reviewed are Neg Eyes: No: Blurred Vision HENT: Positive: Headaches, No: Neck Pain Cardiovascular: No: Chest Pain or Discomfort Respiratory: No: Shortness of Breath Gastrointestinal: No: Nausea, Vomiting, Abdominal Pain Musculoskeletal: Positive: Pain (Low back pain, chronic with history of previous surgery) Neurologic: Positive: Headache Psychiatric: Positive: Substance Abuse (Alcohol abuse) Physical Exam Narrative GENERAL: Awake, intoxicated. 62-year-old male who appears older than his stated age. SKIN: Focused skin assessment warm/dry. 3 cm laceration of the right frontal forehead. HEAD: 3 cm laceration to the right frontal forehead. EYES: Pupils equal and round. 3 mm bilateral and reactive. EOMs are intact. Patient is able to see fingers at a distance of 2 feet without difficulty. ENT: No nasal bleeding or discharge. Mucous membranes pink and moist. Breath smells of alcohol. NECK: Trachea midline. No JVD. No tenderness of the cervical vertebrae. CARDIOVASCULAR: Regular rate and rhythm. No murmur appreciated. RESPIRATORY: No accessory muscle use. Clear to auscultation. Breath sounds equal bilaterally. GASTROINTESTINAL: Abdomen soft, obese, anterior ventral hernia noted. MUSCULOSKELETAL: No obvious deformities. No clubbing. No cyanosis. No edema. Moves all 4 extremities. Back: Well-healed scar of the lower thoracic and lumbar spine. No obvious deformity. NEUROLOGICAL: Awake and alert. No obvious cranial nerve deficits. Motor grossly within normal limits. Normal speech. PSYCHIATRIC: Appears intoxicated. Data Data Last Documented VS Vital Signs Date Time Temp Pulse Resp B/P (MAP) Pulse Ox O2 Delivery O2 Flow Rate FiO2 12/17/17 06:00 66 13 96/57 (70) 100 Nasal Cannula 2.00 12/17/17 04:13 98.4 Orders Orders Complete Blood Count With Diff (12/17/17 04:13) Comprehensive Metabolic Panel (12/17/17 04:13) Thyroid Stimulating Hormone (12/17/17 04:13) Electrocardiogram (12/17/17 04:13) Psych Screen (12/17/17 04:13) Drug Screen, Random Urine (12/17/17 04:13) Alcohol (Ethanol) (12/17/17 04:13) Salicylates (Aspirin) (12/17/17 04:13) Tylenol (Acetaminophen) (12/17/17 04:13) Ct Brain W/O Iv Contrast(Rout) (12/17/17 ) Ct Lumb Spine W/O Contrast (12/17/17 ) Ct Cerv Spine W/O Contrast (12/17/17 ) Lidocai-Epi 1%-1:100,000 Inj (Xylocaine- (12/17/17 04:30) Sodium Chlor 0.9% 1000 Ml Inj (Ns 1000 M (12/17/17 05:00) Naloxone Inj (Narcan Inj) (12/17/17 05:00) Tylenol (Acetaminophen) (12/17/17 06:45) Naloxone Inj (Narcan Inj) (12/17/17 06:45) Admit Order (Ed Use Only) (12/17/17 06:50) Act Partial Throm Time (Ptt) (12/17/17 06:55) Prothrombin Time / Inr (Pt) (12/17/17 06:55) Arterial Blood Gas (Abg) (12/17/17 ) Labs Laboratory Tests Test 12/17/17 04:15 White Blood Count 10.7 TH/MM3 Red Blood Count 4.73 MIL/MM3 Hemoglobin 13.3 GM/DL Hematocrit 40.7 % Mean Corpuscular Volume 86.0 FL Mean Corpuscular Hemoglobin 28.1 PG Mean Corpuscular Hemoglobin Concent 32.7 % Red Cell Distribution Width 16.3 % Platelet Count 627 TH/MM3 Mean Platelet Volume 8.4 FL Neutrophils (%) (Auto) 57.2 % Lymphocytes (%) (Auto) 30.7 % Monocytes (%) (Auto) 8.2 % Eosinophils (%) (Auto) 3.6 % Basophils (%) (Auto) 0.3 % Neutrophils # (Auto) 6.1 TH/MM3 Lymphocytes # (Auto) 3.3 TH/MM3 Monocytes # (Auto) 0.9 TH/MM3 Eosinophils # (Auto) 0.4 TH/MM3 Basophils # (Auto) 0.0 TH/MM3 CBC Comment DIFF FINAL Differential Comment Blood Urea Nitrogen 24 MG/DL Creatinine 1.57 MG/DL Random Glucose 110 MG/DL Total Protein 8.4 GM/DL Albumin 2.9 GM/DL Calcium Level 8.9 MG/DL Alkaline Phosphatase 164 U/L Aspartate Amino Transf (AST/SGOT) 25 U/L Alanine Aminotransferase (ALT/SGPT) 25 U/L Total Bilirubin 0.2 MG/DL Sodium Level 132 MEQ/L Potassium Level 4.1 MEQ/L Chloride Level 99 MEQ/L Carbon Dioxide Level 20.2 MEQ/L Anion Gap 13 MEQ/L Estimat Glomerular Filtration Rate 45 ML/MIN Thyroid Stimulating Hormone 3rd Gen 1.060 uIU/ML Salicylates Level 4.1 MG/DL Acetaminophen Level 50.2 MCG/ML Ethyl Alcohol Level 252 MG/DL MDM Medical Decision Making Medical Screen Exam Complete: Yes Emergency Medical Condition: Yes Medical Record Reviewed: Yes Interpretation(s) EKG reveals normal sinus rhythm with a rate of 65. Q-wave noted in lead III. T -wave changes noted in 1, 2, V5, and V6. Last Impressions Lumbar Spine CT 12/17/17 0000 Signed Impressions: CONCLUSION: 1. No acute bony fracture. 2. Status post lumbar spinal surgery with fusion from L2 to S1. 3. Good alignment of the lumbar spine and fusion. 4. Degenerative changes with disc space narrowing at T12-L1 and L1-L2. 5. Moderate spinal canal stenosis at T12-L1 and L1-L2 Head CT 12/17/17 0000 Signed Impressions: CONCLUSION: 1. No acute intracranial hemorrhage. 2. Bilateral cortical atrophy and chronic white matter changes. Cervical Spine CT 12/17/17 0000 Signed Impressions: CONCLUSION: 1. No acute bony fracture. 2. Primary degenerative changes, disc degeneration disc space narrowing especi ally at C5-6 and C6-7. 3. Broad-based bulging at multiple levels. 4. Bilateral facet arthritis at multiple levels. Laboratory Tests Test 12/17/17 04:15 White Blood Count 10.7 TH/MM3 Red Blood Count 4.73 MIL/MM3 Hemoglobin 13.3 GM/DL Hematocrit 40.7 % Mean Corpuscular Volume 86.0 FL Mean Corpuscular Hemoglobin 28.1 PG Mean Corpuscular Hemoglobin Concent 32.7 % Red Cell Distribution Width 16.3 % Platelet Count 627 TH/MM3 Mean Platelet Volume 8.4 FL Neutrophils (%) (Auto) 57.2 % Lymphocytes (%) (Auto) 30.7 % Monocytes (%) (Auto) 8.2 % Eosinophils (%) (Auto) 3.6 % Basophils (%) (Auto) 0.3 % Neutrophils # (Auto) 6.1 TH/MM3 Lymphocytes # (Auto) 3.3 TH/MM3 Monocytes # (Auto) 0.9 TH/MM3 Eosinophils # (Auto) 0.4 TH/MM3 Basophils # (Auto) 0.0 TH/MM3 CBC Comment DIFF FINAL Differential Comment Blood Urea Nitrogen 24 MG/DL Creatinine 1.57 MG/DL Random Glucose 110 MG/DL Total Protein 8.4 GM/DL Albumin 2.9 GM/DL Calcium Level 8.9 MG/DL Alkaline Phosphatase 164 U/L Aspartate Amino Transf (AST/SGOT) 25 U/L Alanine Aminotransferase (ALT/SGPT) 25 U/L Total Bilirubin 0.2 MG/DL Sodium Level 132 MEQ/L Potassium Level 4.1 MEQ/L Chloride Level 99 MEQ/L Carbon Dioxide Level 20.2 MEQ/L Anion Gap 13 MEQ/L Estimat Glomerular Filtration Rate 45 ML/MIN Thyroid Stimulating Hormone 3rd Gen 1.060 uIU/ML Salicylates Level 4.1 MG/DL Acetaminophen Level 50.2 MCG/ML Ethyl Alcohol Level 252 MG/DL Differential Diagnosis Differential diagnosis includes alcohol intoxication, alcohol abuse, intentional overdose, accidental overdose, opiate overdose, acetaminophen overdose, adjustment reaction, stress reaction, substance-induced mood disorder. Narrative Course IV was established, labs are drawn and sent, and the patient was placed on cardiac telemetry monitoring and continuous pulse oximetry monitoring. CT of the brain, cervical spine, lumbar spine were obtained. Patient's laceration was repaired. Alcohol level and acetaminophen level were sent to lab. The patient's initial blood pressure was normal, however, reevaluation the patient' s blood pressure revealed a systolic in the 70s and a diastolic in the 40s. Patient's heart rate was normal in the 60s, however, review of medicines does reveal that the patient is on metoprolol 100 mg twice a day. Therefore, the patient was administered normal saline 1 L bolus. It is also noted he takes oxycodone 15 mg tablets. The patient was redosed with Narcan and sent immediately to CT. The Narcan and IV fluids improved the patient's blood pressure and his systolic came up into the 160s and diastolic into the 70s, 165/ 78. The patient fell asleep once again, was administered a third dose of Narcan. CT of the brain, cervical spine, and lumbar spine is unremarkable. The patient will require admission in the intensive care unit. I discussed the patient with Dr. Miller who agrees, he requests PT/INR/PTT as well as ABG be ordered. Therefore, those orders were placed in the emergency department. The 4 hour Tylenol level was drawn and sent to lab at 6:45 AM. If the level is elevated greater than 140-150 in the nomogram the patient may need acetylcysteine. Critical Care Narrative Aggregate critical care time was 45 minutes. Time to perform other separately billable procedures was not included in the critical care time. My time did not include minutes spent treating any other patients simultaneously or on activities that did not directly contribute to the patient's treatment. The services I provided to this patient were to treat and/or prevent clinically significant deterioration that could result in: Anoxia, hypoxia, aspiration, , liver failure. I provided critical care services requiring my management, as noted below: Chart data review, documentation time, medication orders and management, vital sign assessments/reviewing monitor data, ordering and reviewing lab tests, ordering and interpreting/reviewing x-rays and diagnostic studies, care of the patient and discussion of the patient with the admitting physicians. Procedures Procedure Narrative LACERATION LOCATION: Forehead LENGTH: 3 cm NUMBER OF STITCHES/JOVANNI: 10 REPAIR: The area of the laceration was prepped with Betadine and sterilely draped. The laceration was infiltrated with 1% lidocaine with epinephrine. The wound was copiously irrigated and explored without evidence of foreign body , tendon injury or neurovascular injury. The wound was closed using 5-0 Vicryl and 4-0 Prolene. This was a 2 layer repair. A sterile dressing was applied. The patient was advised to keep the dressing clean and dry. Patient tolerated the procedure well. Physician Communication Physician Communication I discussed the patient with the executive housekeeper, Dr. Miller, who agrees with admission. Diagnosis Primary Impression: Intentional drug overdose Qualified Codes: T50.902A - Poisoning by unspecified drugs, medicaments and biological substances, intentional self-harm, initial encounter Additional Impressions: Alcohol intoxication Qualified Codes: F10.920 - Alcohol use, unspecified with intoxication, uncomplicated Closed head injury Qualified Codes: S09.90XA - Unspecified injury of head, initial encounter Laceration Admitting Information Admitting Physician Requests: Admit Condition: Serious Charlie Kang MD Dec 17, 2017 04:21
[2017-12-17 04:28] LABS: AUTOMATED NEUTROPHIL # 6.1 TH/MM3 (1.8-7.7); BASOPHIL % 0.3 % (0.0-2.0); EOSINOPHIL # 0.4 TH/MM3 (0-0.4); EOSINOPHIL % 3.6 % (0.0-4.0); HEMATOCRIT 40.7 % (39.0-51.0); HEMOGLOBIN 13.3 GM/DL (13.0-17.0); LYMPH % 30.7 % (9.0-44.0); LYMPHOCYTE # 3.3 TH/MM3 (1.0-4.8); MEAN CORPUSCULAR HEMOGLOBIN 28.1 PG (27.0-34.0); MEAN CORPUSCULAR HGB CONC 32.7 % (32.0-36.0); MEAN PLATELET VOLUME 8.4 FL (7.0-11.0); MONO % 8.2 % (0.0-8.0); MONOCYTE # 0.9 TH/MM3 (0-0.9); NEUT % 57.2 % (16.0-70.0); PLATELET COUNT 627 TH/MM3 (150-450); RED BLOOD COUNT 4.73 MIL/MM3 (4.50-5.90); RED CELL DISTRIBUTION WIDTH 16.3 % (11.6-17.2); WHITE BLOOD COUNT 10.7 TH/MM3 (4.0-11.0)
[2017-12-17] MEDS ORDERED: LIDOCAINE 1%/EPINEPHrine 1:100,000 SOLN 20 ML VIAL INFIL ONE (04:30)
[2017-12-17 04:41] LABS: ALBUMIN 2.9 GM/DL (3.4-5.0); ALT (GPT) 25 U/L (12-78); AST (GOT) 25 U/L (15-37); BICARBONATE 20.2 MEQ/L (21.0-32.0); BLOOD UREA NITROGEN 24 MG/DL (7-18); CALCIUM 8.9 MG/DL (8.5-10.1); CHLORIDE 99 MEQ/L (98-107); CREATININE 1.57 MG/DL (0.60-1.30); GLOMERULAR FILTRATION RATE 45 ML/MIN (>89); GLUCOSE,RANDOM 110 MG/DL (74-106); SODIUM (NA) 132 MEQ/L (136-145)
[2017-12-17 04:51] LABS: ACETAMINOPHEN 50.2 MCG/ML (10.0-30.0); ALKALINE PHOSPHATASE 164 U/L (45-117); TOTAL BILIRUBIN ADULT 0.2 MG/DL (0.2-1.0); TOTAL PROTEIN 8.4 GM/DL (6.4-8.2)
[2017-12-17] MEDS ORDERED: SODIUM CHLOR 0.9% 1000 ML INJ 1,000 ML IV ONE ×2 (05:00→10:15)
[2017-12-17] MEDS: NALOXONE HCL 0.4 MG/ML AMP IV PUSH ONE ×2 (05:10→05:16)
--- NOTE | 2017-12-17 05:48 | RADRPT ---
EXAM DATE: 12/17/2017 5:39 AM EDT AGE/SEX: 62 years / Male INDICATIONS: Altered mental status;trauma, fall, overdose. CLINICAL DATA: This is the patient's initial encounter. Patient reports that signs and symptoms have been present for 1 day and indicates a pain score of 7/10. MEDICAL/SURGICAL HISTORY: Cardiovascular disease. seizures Fusion, lumbar. RADIATION DOSE: 56.35 CTDI (mGy) COMPARISON: No prior [facility] exams available for comparison. TECHNIQUE: CT of the head without contrast. Using automated exposure control and adjustment of the mA and/or kV according to patient size, radiation dose was kept as low as reasonably achievable to ob tain optimal diagnostic quality images. FINDINGS: Cerebrum: The ventricles are normal for age. Bilateral cortical atrophy. Chronic white matter change s bilaterally. No evidence of midline shift, mass lesion, hemorrhage or acute infarction. No extraax ial fluid collections are seen. Posterior Fossa: The cerebellum and brainstem are intact. Small old lacunar type infarct in the righ t cerebellar hemisphere. The 4th ventricle is midline. The cerebellopontine angle is unremarkable. Extracranial: The visualized portion of the orbits is intact. Skull: The calvaria is intact. No evidence of skull fracture. CONCLUSION: 1. No acute intracranial hemorrhage. 2. Bilateral cortical atrophy and chronic white matter changes. Electronically signed by: Scott Garcia MD 12/17/2017 5:46 AM EDT
--- NOTE | 2017-12-17 05:52 | RADRPT ---
EXAM DATE: 12/17/2017 5:40 AM EDT AGE/SEX: 62 years / Male INDICATIONS: Altered mental status;trauma, fall, overdose. CLINICAL DATA: This is the patient's initial encounter. Patient reports that signs and symptoms have been present for 1 day and indicates a pain score of 7/10. MEDICAL/SURGICAL HISTORY: Cardiovascular disease. seizure. Fusion, lumbar. RADIATION DOSE: 35.81 CTDI (mGy) COMPARISON: No prior [facility] exams available for comparison. TECHNIQUE: Contiguous axial images were obtained using helical multirow detector technique. The vol umetric data was post-processed with multiplanar reconstruction in oblique axial, sagittal, and coron al planes. Using automated exposure control and adjustment of the mA and/or kV according to patient s ize, radiation dose was kept as low as reasonably achievable to obtain optimal diagnostic quality henrry ges. FINDINGS: Vertebrae: Normal vertebral body height. No acute bony fracture. There are degenerative changes invo lving the mid to lower cervical spine. There is disc space narrowing at C5-6 and C6-7. Alignment: Normal. No subluxation. C2-3: The bony spinal canal is normal in size. No evidence of disc bulge or herniation. The neural foramina are bilaterally patent. C3-4: Mild broad-based bulging. Mild narrowing of the left neural foramina. The right neural foramin a is patent. Mild facet arthritis. C4-5: Mild broad-based bulging. The neural foramina are patent. Mild facet arthritis. C5-6: Broad-based bulging with disc osteophyte complex. There is narrowing of the left neural forami na. The right neural foramina is patent. Bilateral facet arthritis. C6-7: Broad-based bulging with disc osteophyte complex. Narrowing of the left neural foramina. The r ight neural foramina is patent. Facet arthritis. C7-T1: The bony spinal canal is normal in size. No evidence of disc bulge or herniation. The neura l foramina are bilaterally patent. CONCLUSION: 1. No acute bony fracture. 2. Primary degenerative changes, disc degeneration disc space narrowing especially at C5-6 and C6-7. 3. Broad-based bulging at multiple levels. 4. Bilateral facet arthritis at multiple levels. Electronically signed by: Scott Garcia MD 12/17/2017 5:50 AM EDT
--- NOTE | 2017-12-17 05:57 | RADRPT ---
EXAM DATE: 12/17/2017 5:40 AM EDT AGE/SEX: 62 years / Male INDICATIONS: Altered mental status;trauma, fall, overdose. CLINICAL DATA: This is the patient's initial encounter. Patient reports that signs and symptoms have been present for 1 day and indicates a pain score of 7/10. MEDICAL/SURGICAL HISTORY: Cardiovascular disease. seizure. Fusion, lumbar. RADIATION DOSE: 27.1 CTDI (mGy) COMPARISON: No prior [facility] exams available for comparison. TECHNIQUE: Contiguous axial images were acquired with a multirow detector CT scanner without contras t. Multiplanar reconstructions in the sagittal and coronal plane were also performed. Using automate d exposure control and adjustment of the mA and/or kV according to patient size, radiation dose was k ept as low as reasonably achievable to obtain optimal diagnostic quality images. FINDINGS: Vertebrae: Status post previous lumbar spinal surgery with fusion from L2 through S1. There are dege nerative changes involving the lower thoracic and upper lumbar spine. There is disc space narrowing a t L1-2. No acute bony fractures. The hardware is grossly intact. Alignment: Normal. No subluxation. T12-L1: Broad-based bulging with disc osteophyte complex. Narrowing of the neural foramina bilateral ly. Bilateral facet arthritis. Moderate spinal canal stenosis. L1-L2: Moderate broad-based bulging and right lateral bulging with disc osteophyte complex. Narrowin g of the right neural foramina. The left neural foramina is patent. Bilateral facet arthritis. Hypert rophy ligamentum flavum. Moderate spinal canal stenosis. L2-L3: The thecal sac has a normal diameter. No evidence of disc bulge or protrusion. The neural f oramina are patent bilaterally. L3-L4: The thecal sac has a normal diameter. No evidence of disc bulge or protrusion. The neural f oramina are patent bilaterally. L4-L5: The thecal sac has a normal diameter. No evidence of disc bulge or protrusion. The neural f oramina are patent bilaterally. L5-S1: The thecal sac has a normal diameter. No evidence of disc bulge or protrusion. The neural f oramina are patent bilaterally. CONCLUSION: 1. No acute bony fracture. 2. Status post lumbar spinal surgery with fusion from L2 to S1. 3. Good alignment of the lumbar spine and fusion. 4. Degenerative changes with disc space narrowing at T12-L1 and L1-L2. 5. Moderate spinal canal stenosis at T12-L1 and L1-L2 Electronically signed by: Scott Garcia MD 12/17/2017 5:55 AM EDT
[2017-12-17] MEDS ORDERED: NALOXONE HCL 0.4 MG/ML AMP IV PUSH ONE (06:45)
[2017-12-17] MEDS ORDERED: DEXTROSE 50% IN WATER 50 ML VIAL(D50) IV PUSH PRN (07:00)
[2017-12-17] MEDS: INSULIN NovoLIN REGULAR SUPPLEMENTAL SCALE SQ SCH ×5 (07:00→23:24)
[2017-12-17] MEDS ORDERED: RESP: ALBUTEROL 2.5 MG/IPRATROPIUM 0.5 MG NEB (PRN) INH (07:00)
[2017-12-17] MEDS ORDERED: GLUCAGON 1 MG/ML VIAL OTHER PRN (07:00)
[2017-12-17] MEDS ORDERED: MAGNESIUM HYDROXIDE SUSP 30 ML CUP PO PRN (07:00)
[2017-12-17] MEDS ORDERED: SENNOSIDES 8.6 MG TAB PO PRN (07:00)
[2017-12-17] MEDS ORDERED: LACTULOSE SYRUP 20 GM/30 ML CUP PO PRN (07:00)
[2017-12-17] MEDS ORDERED: BISACODYL 10 MG SUPP RECTAL PRN (07:00)
[2017-12-17] MEDS ORDERED: CHLORHEXIDINE GLUCONATE 2 % 1 PACK (2 CLOTHS) TOP PRN (07:00)
[2017-12-17] MEDS ORDERED: NURSING INFORMATION XX SCH (07:00)
[2017-12-17 07:25] LABS: PROTHROMBIN TIME - PATIENT 10.5 SEC (9.8-11.6)
[2017-12-17] MEDS: PANTOPRAZOLE SODIUM 40 MG VIAL IV PUSH SCH (07:42)
[2017-12-17] MEDS: DEXT 5%-NACL 0.9% 1000 ML INJ 1,000 ML IV SCH ×2 (07:43→09:59)
[2017-12-17] MEDS: RESP: ALBUTEROL 2.5 MG/IPRATROPIUM 0.5 MG NEB (SCH) INH ×2 (08:26→20:59)
[2017-12-17] MEDS ORDERED: HEPARIN SODIUM - SQ 10,000 UNITS/ML VIAL SQ SCH (09:00)
[2017-12-17] MEDS: DOCUSATE SODIUM 50 MG/SENNA 8.6 MG TAB PO SCH ×2 (09:58→21:00)
[2017-12-17] MEDS: MULTIVITAMIN TAB PO SCH (09:58)
[2017-12-17] MEDS: THIAMINE HCL 100 MG TAB PO SCH (09:58)
[2017-12-17] MEDS: FOLIC ACID 1 MG TAB PO SCH (09:58)
--- NOTE | 2017-12-17 10:58 | MH ---
cc: Anne Marie Clinton MD DATE OF ADMISSION: 12/17/2017 DATE OF : 1955 HISTORY OF PRESENT ILLNESS: The patient is a 62-year-old male with a past medical history of depression, COPD, diabetes mellitus, hypertension, hepatitis C, who presented to [facility] ED via EMS with the police as a Hanson Act after intentional overdose. Also, the patient has been drinking daily for the past 1 week. Per ED records, patient took 21 oxycodone pills prior to arrival. The patient is overall a poor historian. He reports low back pain, chronic, worse after he fell. He also was noted to have a laceration in the right frontal forehead just above the eyebrow. He was given Narcan by EMS IV prior to arrival and his mental status subsequently improved and went from a GCS score of 10 to 14. He was found to have a Tylenol level of 50.2 and on repeat it was 49.2. Also, alcohol level elevated at 252. His laboratory data is significant for acute kidney injury with creatinine level of 1.57. In the ED, he was given additional Narcan 0.4 mg, 1 liter bolus of normal saline. ABG on nasal cannula showed a pH of 7.26, CO2 of 45, PaO2 102, bicarbonate 19, saturation 92%. When seen, the patient's mental status overall improved. He states that he was trying to hurt himself. He denies any chest pain, nausea, vomiting, abdominal pain or worsening of dyspnea from baseline. Also, he denies any fever, chills or constitutional symptoms. A CT scan of the brain in the ED showed no acute intracranial hemorrhage, bilateral cortical atrophy and chronic white matter changes. Also, he had a CT of the lumbar spine, which showed no acute bony fracture and CT cervical spine showed no acute abnormalities as well. PAST MEDICAL HISTORY: Significant for COPD, arthritis, hepatitis C, hypertension, diabetes mellitus. PAST SURGICAL HISTORY: Previous CABG x6 in 2004, previous back surgeries. ALLERGIES: MORPHINE. REPORTED MEDICATIONS: 1. Oxycodone. 2. Restoril. 3. Zocor. 4. Zoloft. 5. Prilosec. 6. Naprosyn. 7. Metoprolol. 8. Glipizide. 9. Symbicort. 10. Aspirin. 11. Allopurinol. 12. Ventolin. FAMILY HISTORY: Noncontributing to present illness. REVIEW OF SYSTEMS: As per HPI. REVIEW OF SYSTEMS: Limited as the patient is a poor historian. PHYSICAL EXAMINATION: GENERAL: A 62-year-old male lying in bed in no acute respiratory distress VITAL SIGNS: Afebrile. Temperature 98.4, pulse 76, respiratory rate of 18, blood pressure 142/76, sats 100 percent on 2 liters oxygen. HEENT: A 3 cm laceration to the right frontal forehead notated. Pupils equal, round, reactive to light and accommodation. Extraocular muscles intact. Conjunctivae pink, nonicteric sclerae. Oral mucosa within normal. NECK: Supple. No JVD. No thyromegaly. Trachea is straight, in the midline. CARDIOVASCULAR: Regular rate and rhythm. Normal S1, S2. No murmurs, rubs or gallops noted. PULMONARY: Bilaterally equal entry. No rales or wheezing. ABDOMEN: Soft, obese, nontender. No distention. Positive bowel sounds. EXTREMITIES: No cyanosis, clubbing or edema. NEUROLOGIC: No focal sensory deficit. LABORATORY DATA: Sodium 132, potassium 4.1, chloride 99, CO2 20, BUN 24, creatinine 1.57, glucose 110, AST 25, ALT 25, total bilirubin 0.2, alkaline phosphatase 164. TSH 1. WBC 10.7, hemoglobin 13, hematocrit 40, platelet count 627. INR 1, PT 10.5, PTT 29. Alcohol level 252. Tylenol level 50.2, repeat 49.2. Aspirin 4.1. RADIOGRAPHIC STUDIES: CT brain, CT cervical and lumbar spines with no acute abnormalities. IMPRESSION: 1. Respiratory insufficiency. 2. Suicide attempt. 3. Tylenol toxicity. 4. Ethyl alcohol intoxication. 5. Acute kidney injury. 6. Hyponatremia. 7. History of hypertension. 8. History of diabetes mellitus. 9. Morbid obesity. 10. History of depression. 11. History of coronary artery disease and coronary artery bypass graft. RECOMMENDATIONS: 1. Monitor neuro status closely and avoid any sedatives. A CT scan of the ED negative for acute intracranial findings. We will obtain a urine drug screen. 2. We will place on thiamine, multivitamins and folic acid. Monitor for signs of delirium tremens. 3. Continue with oxygen to maintain sats above 92%. 4. Bronchodilators in the form of DuoNeb q. 4 plus q. 2 p.r.n. for shortness of breath and will resume Symbicort and his home medications. 5. Monitor heart rate and blood pressure closely and maintain MAP greater than 65 mmHg. He was given 1 liter bolus of normal saline. We will place on D5NS at 84 mL an hour. 6. Monitor renal function, I's and O's and electrolyte replacement per protocol. IV fluids as stated above. We will give an additional 1 liter bolus of normal saline and repeat a CMP. 7. Keep n.p.o. for now until mental status improves and placed on Protonix 40 mg for gastrointestinal prophylaxis. 8. Consult Psychiatry Service as the patient was Hanson Acted by police for intentional overdose. 9. Monitor for signs of infection which include fever and WBC. We will obtain urinalysis with culture if indicated and baseline chest x-ray. 10. Monitor CBC. 11. Place on sliding scale insulin with Accu-Cheks for glycemic control. TSH level measured at 1.0. 12. I will start Mucomyst protocol for Tylenol overdose and check Tylenol level every 4 hours. 13. Monitor CBC and coags. 14. Gastrointestinal prophylaxis with Protonix 40 mg daily. 15. Deep venous thrombosis prophylaxis with sequential compression devices for now. 16. Further recommendations will be based on hospital course. Addendum: Patient appears hemodynamically stable, Tylenol level down 3.6 from 50 on arrival. Will sign off and transfer care to [facility] MD VIKY Pathak/JANEE , 10:21 AM , 10:56 AM HARI
[2017-12-17] MEDS ORDERED: ACETYLCYSTEINE IV ONE ×6 (11:00→16:00)
[2017-12-17] MEDS ORDERED: DEXTROSE 5% IV ONE ×6 (11:00→16:00)
[2017-12-17] MEDS ORDERED: WATER IV ONE ×2 (11:00)
[2017-12-17 11:12] LABS: AUTOMATED NEUTROPHIL # 5.9 TH/MM3 (1.8-7.7); BASOPHIL # 0.1 TH/MM3 (0-0.2); EOSINOPHIL # 0.2 TH/MM3 (0-0.4); EOSINOPHIL % 2.3 % (0.0-4.0); HEMATOCRIT 38.7 % (39.0-51.0); HEMOGLOBIN 12.5 GM/DL (13.0-17.0); LYMPH % 26.3 % (9.0-44.0); LYMPHOCYTE # 2.4 TH/MM3 (1.0-4.8); MEAN CELL VOLUME 86.9 FL (80.0-100.0); MEAN CORPUSCULAR HGB CONC 32.2 % (32.0-36.0); MEAN PLATELET VOLUME 8.5 FL (7.0-11.0); MONO % 5.5 % (0.0-8.0); MONOCYTE # 0.5 TH/MM3 (0-0.9); NEUT % 64.9 % (16.0-70.0); PLATELET COUNT 571 TH/MM3 (150-450); RED BLOOD COUNT 4.45 MIL/MM3 (4.50-5.90); RED CELL DISTRIBUTION WIDTH 16.2 % (11.6-17.2); WHITE BLOOD COUNT 9.1 TH/MM3 (4.0-11.0)
[2017-12-17 11:32] LABS: ALBUMIN 2.7 GM/DL (3.4-5.0); ALT (GPT) 22 U/L (12-78); AST (GOT) 24 U/L (15-37); BICARBONATE 19.4 MEQ/L (21.0-32.0); BLOOD UREA NITROGEN 24 MG/DL (7-18); CALCIUM 8.4 MG/DL (8.5-10.1); CHLORIDE 105 MEQ/L (98-107); CREATININE 1.66 MG/DL (0.60-1.30); GLOMERULAR FILTRATION RATE 42 ML/MIN (>89); GLUCOSE,RANDOM 95 MG/DL (74-106); SODIUM (NA) 137 MEQ/L (136-145)
--- NOTE | 2017-12-17 11:32 | RADRPT ---
EXAM DATE: 12/17/2017 10:56 AM EDT AGE/SEX: 62 years / Male INDICATIONS: Shortness of breath. CLINICAL DATA: This is the patient's initial encounter. Patient reports that signs and symptoms have been present for 1 day and indicates a pain score of 0/10. MEDICAL/SURGICAL HISTORY: Congestive heart failure. Diabetes. Chronic obstructive pulmonary d isease. AFIB. Hypertension. CABG. COMPARISON: [facility] [place], CHEST SINGLE AP, 09/11/2011. . FINDINGS: A single AP view of the chest demonstrates the lungs to be symmetrically aerated without evidence of mass, infiltrate or effusion. There is diffuse interstitial prominence throughout the lungs including 4 intact sternal wires. Parenchymal markings similar to 2012 The cardiomediastinal contours are unr emarkable. Osseous structures are intact. CONCLUSION: Again mild diffuse interstitial prominence throughout the lungs. 4 intact sternal wires. Electronically signed by: Adebayo Camp MD 12/17/2017 11:31 AM EDT
[2017-12-17 11:34] LABS: ALKALINE PHOSPHATASE 155 U/L (45-117); TOTAL BILIRUBIN ADULT 0.2 MG/DL (0.2-1.0); TOTAL PROTEIN 7.7 GM/DL (6.4-8.2)
[2017-12-17] MEDS ORDERED: WATE IV ONE ×4 (12:00→16:00)
[2017-12-17] MEDS ORDERED: LORazepam 1 MG TAB PO PRN (14:00)
[2017-12-17] MEDS ORDERED: LORazepam 2 MG TAB PO PRN (14:00)
[2017-12-17] MEDS ORDERED: FLUMAZENIL 0.5 MG/5 ML VIAL IV PUSH PRN (14:00)
[2017-12-17] MEDS ORDERED: LORazepam 2 MG/ML VIAL IV PUSH PRN ×2 (14:00)
--- NOTE | 2017-12-17 14:22 | PD.PSY.CON ---
Provisional Diagnosis Admission Date Dec 17, 2017 at 06:53 [place] I. Major depressive disorder, recurrent, severe, without psychosis, alcohol use disorder [place] II. Deferred [place] III. COPD, hypertension, diabetes, hepatitis C History of Present Illness Service Psychiatry Consult Requested By Critical care Reason for Consult Suicidal attempt Primary Care Physician [facility] HPI The patient is a 62-year-old man, domiciled along in [facility], unemployed, supported by [facility], he is a , with psychiatric history of depression, anxiety, no previous psychiatric hospitalizations, he denies suicidal attempts, alcohol use disorder, and established outpatient psychiatric care through the [facility], he is on Wellbutrin 100 mg twice daily, sort of 200 mg, with an extensive medical history of COPD, diabetes mellitus, hypertension, hepatitis C, who presented to [facility] ED via EMS with the police as a Hanson Act after intentional overdose. Also, the patient has been drinking daily for the past 1 week. Per ED records, patient took 21 oxycodone pills prior to arrival. The patient is overall a poor historian. He reports low back pain, chronic, worse after he fell. He also was noted to have a laceration in the right frontal forehead just above the eyebrow. He was given Narcan by EMS IV prior to arrival and his mental status subsequently improved and went from a GCS score of 10 to 14. He was found to have a Tylenol level of 50.2 and on repeat it was 49.2. Also, alcohol level elevated at 252. His laboratory data is significant for acute kidney injury with creatinine. A CT scan of the brain in the ED showed no acute intracranial hemorrhage, bilateral cortical atrophy and chronic white matter changes. Also, he had a CT of the lumbar spine, which showed no acute bony fracture and CT cervical spine showed no acute abnormalities as well. Patient was consulted to psychiatry to address suicidal attempt. The case was widely discussed with nurse in charge. EMR was reviewed. The case was also seen and discussed with medical student [place]. On psychiatric evaluation today the patient is calm, superficially cooperative, he seems to be a little bit confused, distant and lethargic. However, the patient is able to tell me that he is very disappointed to be alive. He reports that after becoming aware that his significant other is living him for another man he decided that the life is no worth living, and to commit suicide by overdosing. Patient reports that he took "a bunch of pills with alcohol with the intention to '. He reports that he feels quite disappointed that he opened his eyes he was alive. Patient reports feeling very helpless, worthless , with increased guiltiness, sense of emptiness, rejection, and suicidal ideation without a specific plan. The patient denies homicidal ideation, denies visual and auditory hallucinations. The patient is to be confused, but he is oriented to person, place, partially oriented in time. The patient reports that he has been fighting with depression for a long time, he [facility], taking antidepressant with just modest results. He also reports the use of alcohol every day, denies the use of illegal drugs. Review of Systems Constitutional: DENIES: Diaphoretic episodes, Fatigue, Fever, Weight gain, Weight loss, Chills, Dizziness, Change in appetite, Night Sweats Endocrine: DENIES: Heat/cold intolerance, Polydipsia, Polyuria, Polyphagia Eyes: DENIES: Blurred vision, Diplopia, Eye inflammation, Eye pain, Vision loss , Photosensitivity, Double Vision Ears, nose, mouth, throat: DENIES: Tinnitus, Hearing loss, Vertigo, Nasal discharge, Oral lesions, Throat pain, Hoarseness, Ear Pain, Running Nose, Epistaxis, Sinus Pain, Toothache, Odynophagia Respiratory: DENIES: Apneas, Cough, Snoring, Wheezing, Hemoptysis, Sputum production, Shortness of breath Cardiovascular: DENIES: Chest pain, Palpitations, Syncope, Dyspnea on Exertion , PND, Lower Extremity Edema, Orthopnea, Claudication Gastrointestinal: DENIES: Abdominal pain, Black stools, Bloody stools, Constipation, Diarrhea, Nausea, Vomiting, Difficulty Swallowing, Anorexia Genitourinary: DENIES: Sexual dysfunction, Urinary frequency, Urinary incontinence, Urgency, Hematuria, Dysuria, Nocturia, Penile Discharge, Testicular Pain, Testicular Swelling Musculoskeletal: DENIES: Joint pain, Muscle aches, Stiffness, Joint Swelling, Back pain, Neck pain Integumentary: DENIES: Abnormal pigmentation, Nail changes, Pruritus, Rash Hematologic/lymphatic: DENIES: Bruising, Lymphadenopathy Immunologic/allergic: DENIES: Eczema, Urticaria Neurologic: DENIES: Abnormal gait, Headache, Localized weakness, Paresthesias, Seizures, Speech Problems, Tremor, Poor Balance Psychiatric: COMPLAINS OF: Mood changes, Depression, Suicidal Ideation, DENIES : Anxiety, Confusion, Hallucinations, Agitation, Homicidal Ideation, Delusions Past Family Social History Coded Allergies: morphine (Verified Adverse Reaction, Severe, Itching, 12/17/17) Reported Medications Oxycodone (Oxycodone) 10 Mg Tab, 15 MG PO Q8H Y for PAIN, TAB 0 Refills 03/05/17 Temazepam (Restoril) 30 Mg Cap, 30 MG PO HS for Insomnia, #30 CAP 0 Refills 03/05/17 Simvastatin (Zocor) 10 Mg Tab, 10 MG PO HS for Cholesterol Management, #30 TAB 0 Refills 03/05/17 Sertraline (Zoloft) 100 Mg Tab, 200 MG PO BID, #30 TAB 0 Refills 03/05/17 Omeprazole Magnesium (Prilosec) 20 Mg Tab, 20 MG PO DAILY for Reflux 03/05/17 Naproxen (Naprosyn) 500 Mg Tab, 500 MG PO BID, #60 TAB 0 Refills 03/05/17 Metoprolol Tartrate (Metoprolol Tartrate) 100 Mg Tab, 100 MG PO BID, #60 TAB 0 Refills 03/05/17 Insulin Human NPH Inj (Novolin N Inj) 100 Unit/Ml Inj, 26 UNITS SQ BID 03/05/17 Glipizide (Glipizide) 10 Mg Tab, 10 MG PO DAILY for Blood Sugar Management, #30 TAB 0 Refills Take 30 minutes before a meal 03/05/17 Cetirizine (Cetirizine) 10 Mg Tab, 10 MG PO DAILY for Allergies, TAB 0 Refills 03/05/17 Bupropion HCl (Bupropion HCl) 100 Mg Tab, 200 MG PO BID for Control Depression, TAB 0 Refills 03/05/17 Budesonide-Formoterol Inh (Symbicort Inh) 80-4.5 Mcg/Act Aero, 2 PUFF INH Q12HR for Asthma Management, #1 INHALER 0 Refills 03/05/17 Baclofen (Baclofen) 10 Mg Tab, 10 MG PO BID for Muscle Spasm, TAB 0 Refills 03/05/[address] (Aspirin EC) 81 Mg Tabdr, 81 MG PO DAILY, TAB 0 Refills 03/05/17 Allopurinol (Allopurinol) 100 Mg Tab, 100 MG PO DAILY for Gout, #30 TAB 0 Refills 03/05/17 Albuterol 18 GM Inh (Ventolin Hfa 18 GM Inh) 90 Mcg/Act Aer, 2 PUFF INH TID Y for SHORTNESS OF BREATH, #1 INHALER 0 Refills 03/05/17 Current Medications Medications (Trade) Dose Ordered Sig/Anuradha Route Start Time Stop Time Status Last Admin (Protonix Inj) 40 mg DAILY IV PUSH 12/17/17 09:00 12/17/17 07:42 (Duoneb Neb) 1 ampule Q6HR NEB INH 12/17/17 10:00 12/17/17 08:26 (Duoneb Neb) 1 ampule Q2HR NEB PRN INH 12/17/17 07:00 ([facility] [place] [facility]) 1 [id number] XX 12/17/17 07:00 (Chlorhexidine 2% Cloth) 3 pack Taper DAILY@04 TOP 12/18/17 04:00 12/14/18 03:59 (Chlorhexidine 2% Cloth) 3 pack UNSCH PRN TOP 12/17/17 07:00 (Daphne-Colace) 1 tab BID PO 12/17/17 09:00 12/17/17 09:58 (Milk Of Magnesia Liq) 30 ml Q12H PRN PO 12/17/17 07:00 (Senokot) 17.2 mg Q12H PRN PO 12/17/17 07:00 (Dulcolax Supp) 10 mg DAILY PRN RECTAL 12/17/17 07:00 (Lactulose Liq) 30 ml DAILY PRN PO 12/17/17 07:00 (Vitamin B1) 100 mg DAILY PO 12/17/17 09:00 12/17/17 09:58 (Folate) 1 mg DAILY PO 12/17/17 09:00 12/17/17 09:58 (Theragran) 1 tab DAILY PO 12/17/17 09:00 12/17/17 09:58 Dextrose/Sodium Chloride 1,000 ml @ 84 mls/hr [id number] IV 12/17/17 07:00 12/17/17 09:59 (D50w (Vial) Inj) 50 ml UNSCH PRN IV PUSH 12/17/17 07:00 (Glucagon Inj) 1 mg UNSCH PRN OTHER 12/17/17 07:00 (NovoLIN R SUPPLEMENTAL SCALE) 1 Q4H SQ 12/17/17 07:00 12/17/17 13:12 Acetylcysteine 4250 mg/Dextrose 521.25 ml @ 125 mls/ hr ONCE ONCE IV 12/17/17 12:00 12/17/17 16:10 12/17/17 13:12 Acetylcysteine 8500 mg/Dextrose 1,042.5 ml @ 62.5 mls/ hr ONCE ONCE IV 12/17/17 16:00 12/18/17 08:40 (Symbicort 80-4.5 Mcg Inh) 2 puff Q12HR INH 12/17/17 10:00 (Romazicon Inj) 0.2 mg Q1M PRN IV PUSH 12/17/17 14:00 (Ativan) 1 mg Q4H PRN PO 12/17/17 14:00 (Ativan Inj) 1 mg Q4H PRN IV PUSH 12/17/17 14:00 (Ativan) 2 mg Q2H PRN PO 12/17/17 14:00 (Ativan Inj) 2 mg Q2H PRN IV PUSH 12/17/17 14:00 (Ativan Inj) 2 mg Q1H PRN IV PUSH 12/17/17 14:00 (Ativan Inj) 2 mg Q15M PRN IV PUSH 12/17/17 14:00 (Cymbalta Dr) 30 mg DAILY PO 12/18/17 09:00 (Zoloft) 200 mg BID PO 12/17/17 14:15 UNV Family Psych History No family psychiatric history Social History Patient was born and raised in [place], he lives in [facility] with significant mother, unemployed, supported by [facility], he is a , 100% service- connected. Patient's Strengths (min. 2) Verbal communication, outpatient psychiatric care Physical Exam Patient seems to be hypoactive, with psychomotor retardation, quite lethargic, but no tremors, no EPS, no withdrawal symptoms Vital Signs Vital Signs Date Time Temp Pulse Resp B/P (MAP) Pulse Ox O2 Delivery O2 Flow Rate FiO2 12/17/17 08:52 76 18 121/75 (90) 99 Room Air 12/17/17 08:06 2.00 12/17/17 04:13 98.4 I/O 12/17/17 12/17/17 12/18/17 08:00 16:00 00:00 Intake Total 1000 ml 1200 ml Balance 1000 ml 1200 ml Lab Results Test 12/17/17 04:15 12/17/17 06:50 12/17/17 07:09 12/17/17 07:12 White Blood Count 10.7 TH/MM3 Red Blood Count 4.73 MIL/MM3 Hemoglobin 13.3 GM/DL Hematocrit 40.7 % Mean Corpuscular Volume 86.0 FL Mean Corpuscular Hemoglobin 28.1 PG Mean Corpuscular Hemoglobin Concent 32.7 % Red Cell Distribution Width 16.3 % Platelet Count 627 TH/MM3 Mean Platelet Volume 8.4 FL Neutrophils (%) (Auto) 57.2 % Lymphocytes (%) (Auto) 30.7 % Monocytes (%) (Auto) 8.2 % Eosinophils (%) (Auto) 3.6 % Basophils (%) (Auto) 0.3 % Neutrophils # (Auto) 6.1 TH/MM3 Lymphocytes # (Auto) 3.3 TH/MM3 Monocytes # (Auto) 0.9 TH/MM3 Eosinophils # (Auto) 0.4 TH/MM3 Basophils # (Auto) 0.0 TH/MM3 CBC Comment DIFF FINAL Differential Comment Blood Urea Nitrogen 24 MG/DL Creatinine 1.57 MG/DL Random Glucose 110 MG/DL Total Protein 8.4 GM/DL Albumin 2.9 GM/DL Calcium Level 8.9 MG/DL Alkaline Phosphatase 164 U/L Aspartate Amino Transf (AST/SGOT) 25 U/L Alanine Aminotransferase (ALT/SGPT) 25 U/L Total Bilirubin 0.2 MG/DL Sodium Level 132 MEQ/L Potassium Level 4.1 MEQ/L Chloride Level 99 MEQ/L Carbon Dioxide Level 20.2 MEQ/L Anion Gap 13 MEQ/L Estimat Glomerular Filtration Rate 45 ML/MIN Thyroid Stimulating Hormone 3rd Gen 1.060 uIU/ML Salicylates Level 4.1 MG/DL Acetaminophen Level 50.2 MCG/ML 49.2 MCG/ML Ethyl Alcohol Level 252 MG/DL Prothrombin Time 10.5 SEC Prothromb Time International Ratio 1.0 RATIO Activated Partial Thromboplast Time 29.1 SEC Blood Gas Puncture Site RT RADIAL Blood Gas Patient Temperature 98.6 Blood Gas HCO3 19 mmol/L Blood Gas Base Excess -6.5 mmol/L Blood Gas Oxygen Saturation 92 % Arterial Blood pH 7.26 Arterial Blood Partial Pressure CO2 45 mmHg Arterial Blood Partial Pressure O2 102 mmHG Arterial Blood Oxygen Content 16.2 Vol % Arterial Blood Carboxyhemoglobin 4.4 % Arterial Blood Methemoglobin 0.7 % Blood Gas Hemoglobin 12.5 G/DL Oxygen Delivery Device NASAL CANNULA Blood Gas Liter Flow 3 L/M Test 12/17/17 10:22 White Blood Count 9.1 TH/MM3 Red Blood Count 4.45 MIL/MM3 Hemoglobin 12.5 GM/DL Hematocrit 38.7 % Mean Corpuscular Volume 86.9 FL Mean Corpuscular Hemoglobin 28.0 PG Mean Corpuscular Hemoglobin Concent 32.2 % Red Cell Distribution Width 16.2 % Platelet Count 571 TH/MM3 Mean Platelet Volume 8.5 FL Neutrophils (%) (Auto) 64.9 % Lymphocytes (%) (Auto) 26.3 % Monocytes (%) (Auto) 5.5 % Eosinophils (%) (Auto) 2.3 % Basophils (%) (Auto) 1.0 % Neutrophils # (Auto) 5.9 TH/MM3 Lymphocytes # (Auto) 2.4 TH/MM3 Monocytes # (Auto) 0.5 TH/MM3 Eosinophils # (Auto) 0.2 TH/MM3 Basophils # (Auto) 0.1 TH/MM3 CBC Comment DIFF FINAL Differential Comment Blood Urea Nitrogen 24 MG/DL Creatinine 1.66 MG/DL Random Glucose 95 MG/DL Total Protein 7.7 GM/DL Albumin 2.7 GM/DL Calcium Level 8.4 MG/DL Alkaline Phosphatase 155 U/L Aspartate Amino Transf (AST/SGOT) 24 U/L Alanine Aminotransferase (ALT/SGPT) 22 U/L Total Bilirubin 0.2 MG/DL Sodium Level 137 MEQ/L Potassium Level 4.3 MEQ/L Chloride Level 105 MEQ/L Carbon Dioxide Level 19.4 MEQ/L Anion Gap 13 MEQ/L Estimat Glomerular Filtration Rate 42 ML/MIN Acetaminophen Level 29.6 MCG/ML Mental Status Examination Appearance: Appropriate Consciousness: Alert Orientation: x4 Motor Activity: Normal gait Speech: Unremarkable Language: Adequate Fund of Knowledge: Adequate Attention and Concentration: Adequate Memory: Unremarkable Mood: Sad Affect: Sad Thought Process & Associations: Intact Thought Content: Appropriate Hallucination Type: None Delusion Type: None Suicidal Ideation: No Suicidal Plan: No Suicidal Intention: No Homicidal Ideation: No Homicidal Plan: No Homicidal Intention: No Insight: Poor Judgment: Poor Assessment & Plan Problem List: (1) Major depressive disorder, recurrent ICD Codes: F33.9 - Major depressive disorder, recurrent, unspecified Assessment & Plan: On psychiatric evaluation today the patient presents quite psychomotor retarded, hypoactive, kind of lethargic, but able to cooperate and expressed his disappointment to be alive. Patient clarifies that he overdosed with suicidal intentions after becoming aware that his significant other is cheating on him. The patient reports that he has been fighting with depression for a long time, he has been in Wellbutrin 100 mg twice daily, Zoloft 200 mg prescribed by psychiatrist in the [facility] with modest results. At this moment the patient reports anhedonia, hopelessness, helplessness, increased sense of rejection, abandonment, and active suicidal ideation, no specific plan. He denies homicidal ideation, he denies visual and auditory hallucinations. The patient has history of depression, but no admissions, no suicide attempts in the past at this moment the patient has an increased risk of danger to self, he needs psychiatric hospitalization for stabilization and safety. Please continue with one-to-one sitter in the medical floor for safety. Will discontinue Wellbutrin given its elevated risk to decrease seizure threshold in alcoholic patients. Will order a CIWA protocol. Continue Zoloft 200 mg. Will add Cymbalta 30 mg daily to help with pain and mood. Brief supportive psychotherapy, psychoeducation and motivation provided. Transferred the patient to psychiatry once medically stable. Assessment & Plan Estimated LOS: John Poole MD Dec 17, 2017 14:22
[2017-12-17] MEDS: SERTRALINE HCL 100 MG TAB PO SCH ×2 (14:46→21:14)
[2017-12-17] MEDS: BUDESONIDE-FORMOTEROL 80/4.5 MCG INHALER INH SCH ×2 (15:44→21:14)
--- NOTE | 2017-12-17 16:08 | EKG ---
Date Performed: 12/17/2017 Time Performed: 04:15:43 PTAGE: 62 years EKG: Sinus rhythm POSSIBLE INFERIOR MYOCARDIAL INFARCTION ABNORMAL ECG PREVIOUS TRACING 03/05/17 Possible prolongation of the QT interval for the heart rate. Lateral ST segment changes. Since the prior tracing, there has been an increase in the QT interval, and an in crease in the lateral ST segment depression. Electrolyte disturbance, drug effect, and myocardial dis ease should be excluded clinically. DOCTOR: Portia Crooks Interpretating Date/Time 12/17/2017 16:08:29
[2017-12-17 16:40] LABS: AMORPHOUS SEDIMENT, URINE RARE; BILIRUBIN, URINE NEG (NEG); BLOOD, URINE NEG (NEG); GLUCOSE,URINE NEG (NEG); KETONE, URINE NEG (NEG); MUCUS URINE FEW /lpf (OCC); NITRITE,URINE NEG (NEG); PH, URINE 5.5 (5.0-8.5); SQUAMOUS EPITHELIAL CELL URINE <1 /hpf (0-5); URINE COLOR YELLOW (YELLW/STRAW); URINE LEUKOCYTE ESTERASE NEG (NEG)
[2017-12-17 16:42] LABS: HYALINE CAST, URINE 0-2 /lpf (RARE)
[2017-12-17] MEDS ORDERED: METOPROLOL TARTRATE 50 MG TAB PO ONE (17:45)
[2017-12-17] MEDS: METOPROLOL TARTRATE 50 MG TAB PO SCH (21:14)
[2017-12-17] MEDS: HYDROmorphone HCL PF 2 MG/ML VIAL IV PRN (22:33)
[2017-12-17] MEDS: LORazepam 2 MG/ML VIAL IV PUSH PRN (23:25)
[2017-12-18] VITALS (21 sets, daily range): BP systolic 132–178; BP diastolic 71–87; PULSE 70–90; RESP 20–27; TEMP 98–98.4; O2SAT 96–100
[2017-12-18] MEDS: cloNIDine HCL 0.2 MG TAB PO SCH ×3 (00:57→16:45)
[2017-12-18] MEDS: HYDROmorphone HCL PF 2 MG/ML VIAL IV PRN ×3 (01:59→14:43)
[2017-12-18] MEDS: LORazepam 2 MG/ML VIAL IV PUSH PRN ×3 (03:12→14:28)
[2017-12-18 03:19] LABS: AUTOMATED NEUTROPHIL # 5.7 TH/MM3 (1.8-7.7); BASOPHIL # 0.1 TH/MM3 (0-0.2); BASOPHIL % 1.4 % (0.0-2.0); EOSINOPHIL # 0.3 TH/MM3 (0-0.4); EOSINOPHIL % 4.1 % (0.0-4.0); HEMATOCRIT 34.7 % (39.0-51.0); HEMOGLOBIN 11.3 GM/DL (13.0-17.0); LYMPHOCYTE # 1.3 TH/MM3 (1.0-4.8); MEAN CELL VOLUME 85.2 FL (80.0-100.0); MEAN CORPUSCULAR HEMOGLOBIN 27.8 PG (27.0-34.0); MEAN CORPUSCULAR HGB CONC 32.7 % (32.0-36.0); MEAN PLATELET VOLUME 8.3 FL (7.0-11.0); MONO % 7.1 % (0.0-8.0); MONOCYTE # 0.6 TH/MM3 (0-0.9); NEUT % 71.4 % (16.0-70.0); PLATELET COUNT 460 TH/MM3 (150-450); RED BLOOD COUNT 4.07 MIL/MM3 (4.50-5.90); RED CELL DISTRIBUTION WIDTH 15.9 % (11.6-17.2)
[2017-12-18] MEDS: INSULIN NovoLIN REGULAR SUPPLEMENTAL SCALE SQ SCH ×3 (03:22→11:00)
[2017-12-18] MEDS ORDERED: ALBUTEROL SULFATE 90 MCG/ACT HFA 8 GM INHALER INH PRN (03:30)
[2017-12-18] MEDS ORDERED: LABETALOL HCL 100 MG/20 ML VIAL IV PUSH PRN (03:30)
[2017-12-18] MEDS ORDERED: ENALAPRILAT 2.5 MG/2 ML VIAL IV PUSH ONE (03:30)
[2017-12-18 03:47] LABS: ALBUMIN 2.2 GM/DL (3.4-5.0); ALT (GPT) 23 U/L (12-78); AST (GOT) 16 U/L (15-37); BICARBONATE 22.6 MEQ/L (21.0-32.0); BLOOD UREA NITROGEN 15 MG/DL (7-18); CALCIUM 7.9 MG/DL (8.5-10.1); CHLORIDE 103 MEQ/L (98-107); CREATININE 0.95 MG/DL (0.60-1.30); GLOMERULAR FILTRATION RATE 80 ML/MIN (>89); GLUCOSE,RANDOM 184 MG/DL (74-106); MAGNESIUM 1.7 MG/DL (1.5-2.5); PHOSPHORUS 1.6 MG/DL (2.5-4.9); SODIUM (NA) 135 MEQ/L (136-145)
[2017-12-18 03:49] LABS: ALKALINE PHOSPHATASE 141 U/L (45-117); TOTAL BILIRUBIN ADULT 0.2 MG/DL (0.2-1.0); TOTAL PROTEIN 6.8 GM/DL (6.4-8.2)
[2017-12-18] MEDS ORDERED: CHLORHEXIDINE GLUCONATE 2 % 1 PACK (2 CLOTHS) TOP SCH (04:00)
[2017-12-18] MEDS: RESP: ALBUTEROL 2.5 MG/IPRATROPIUM 0.5 MG NEB (SCH) INH ×3 (04:22→15:51)
[2017-12-18] MEDS: DEXT 5%-NACL 0.9% 1000 ML INJ 1,000 ML IV SCH (06:50)
[2017-12-18] MEDS: THIAMINE HCL 100 MG TAB PO SCH (08:00)
[2017-12-18] MEDS: SERTRALINE HCL 100 MG TAB PO SCH (08:00)
[2017-12-18] MEDS: FOLIC ACID 1 MG TAB PO SCH (08:00)
[2017-12-18] MEDS: METOPROLOL TARTRATE 50 MG TAB PO SCH (08:00)
[2017-12-18] MEDS: PANTOPRAZOLE SODIUM 40 MG VIAL IV PUSH SCH (08:00)
[2017-12-18] MEDS: MULTIVITAMIN TAB PO SCH (08:00)
[2017-12-18] MEDS: DOCUSATE SODIUM 50 MG/SENNA 8.6 MG TAB PO SCH (08:01)
[2017-12-18] MEDS: BUDESONIDE-FORMOTEROL 80/4.5 MCG INHALER INH SCH (08:06)
[2017-12-18] MEDS ORDERED: METOPROLOL TARTRATE 100 MG TAB PO SCH (09:00)
[2017-12-18] MEDS ORDERED: ASPIRIN EC 81 MG TABEC PO SCH (09:00)
[2017-12-18] MEDS ORDERED: DULoxetine HCl DR 30 MG CAP PO SCH (09:00)
[2017-12-18] MEDS ORDERED: buPROPion HCL 100 MG TAB PO SCH (09:00)
[2017-12-18] MEDS ORDERED: CETIRIZINE HCL 10 MG TAB PO SCH (09:00)
[2017-12-18] MEDS ORDERED: methylPREDNISolone SOD SUCC 125 MG/2 ML VIAL IV PUSH ONE (09:00)
[2017-12-18] MEDS ORDERED: BACLOFEN 10 MG TAB PO SCH (09:00)
[2017-12-18] MEDS ORDERED: Albuterol-Ipratropium Neb INH (09:08)
--- NOTE | 2017-12-18 09:18 | HHI.DS ---
Discharge Summary Admission Date Dec 17, 2017 at 06:53 Discharge Date: Dec 18, 2017 Admitting Diagnosis Intentional opiate overdose, alcohol intoxication, closed head injur (1) Intentional drug overdose ICD Code: T50.902A - Poisoning by unspecified drugs, medicaments and biological substances, intentional self-harm, initialencounter Status: Acute (2) Major depressive disorder, recurrent ICD Code: F33.9 - Major depressive disorder, recurrent, unspecified (3) COPD (chronic obstructive pulmonary disease) ICD Code: J44.9 - Chronic obstructive pulmonary disease, unspecified Procedures none Brief History - From Admission 62-year-old male with history of diabetes, depression, COPD admitted yesterday for intentional drug overdose in a suicide attempt. CBC/BMP: 12/18/17 0309 12/18/17 0309 Significant Findings Laboratory Tests Test 12/17/17 04:15 12/17/17 06:50 12/17/17 07:09 12/17/17 07:12 Platelet Count 627 TH/MM3 (150-450) Monocytes (%) (Auto) 8.2 % (0.0-8.0) Blood Urea Nitrogen 24 MG/DL (7-18) Creatinine 1.57 MG/DL (0.60-1.30) Random Glucose 110 MG/DL (74-106) Total Protein 8.4 GM/DL (6.4-8.2) Albumin 2.9 GM/DL (3.4-5.0) Alkaline Phosphatase 164 U/L (45-117) Sodium Level 132 MEQ/L (136-145) Carbon Dioxide Level 20.2 MEQ/L (21.0-32.0) Estimat Glomerular Filtration Rate 45 ML/MIN (>89) Acetaminophen Level 50.2 MCG/ML (10.0-30.0) 49.2 MCG/ML (10.0-30.0) Ethyl Alcohol Level 252 MG/DL (0-5) Blood Gas HCO3 19 mmol/L (22-26) Blood Gas Base Excess -6.5 mmol/L (-2-2) Arterial Blood pH 7.26 (7.380-7.420) Arterial Blood Partial Pressure CO2 45 mmHg (38-42) Arterial Blood Carboxyhemoglobin 4.4 % (0-4) Test 12/17/17 10:22 12/17/17 12:30 12/17/17 15:40 12/17/17 17:05 Red Blood Count 4.45 MIL/MM3 (4.50-5.90) Hemoglobin 12.5 GM/DL (13.0-17.0) Hematocrit 38.7 % (39.0-51.0) Platelet Count 571 TH/MM3 (150-450) Blood Urea Nitrogen 24 MG/DL (7-18) Creatinine 1.66 MG/DL (0.60-1.30) Albumin 2.7 GM/DL (3.4-5.0) Calcium Level 8.4 MG/DL (8.5-10.1) Alkaline Phosphatase 155 U/L (45-117) Carbon Dioxide Level 19.4 MEQ/L (21.0-32.0) Estimat Glomerular Filtration Rate 42 ML/MIN (>89) Urine Protein 30 mg/dL (NEG-TRACE) Urine Mucus FEW /lpf (OCC) Urine Benzodiazepines Screen POS (NEG) Urine Cocaine Screen POS (NEG) Acetaminophen Level 3.6 MCG/ML (10.0-30.0) Test 12/17/17 20:59 12/18/17 00:31 12/18/17 03:09 Acetaminophen Level LESS THAN 2.0 MCG/ML LESS THAN 2.0 MCG/ML Red Blood Count 4.07 MIL/MM3 (4.50-5.90) Hemoglobin 11.3 GM/DL (13.0-17.0) Hematocrit 34.7 % (39.0-51.0) Platelet Count 460 TH/MM3 (150-450) Neutrophils (%) (Auto) 71.4 % (16.0-70.0) Eosinophils (%) (Auto) 4.1 % (0.0-4.0) Random Glucose 184 MG/DL (74-106) Albumin 2.2 GM/DL (3.4-5.0) Calcium Level 7.9 MG/DL (8.5-10.1) Phosphorus Level 1.6 MG/DL (2.5-4.9) Alkaline Phosphatase 141 U/L (45-117) Sodium Level 135 MEQ/L (136-145) Estimat Glomerular Filtration Rate 80 ML/MIN (>89) Hospital Course 62-year-old male who presented yesterday after overdosing on multiple medications including Percocet. And his altered state he lost his balance and fell hitting his head causing a laceration on his right forehead. He was treated in the ICU with Mucomyst to cover for Tylenol toxicity, all doses have been given. This morning the narcotic effect has worn off and he is alert and oriented 3. He remains depressed, admits to suicidal ideation still. He is generally weak from his ordeal, but his baseline is ambulatory though unbalanced. He has some lung congestion on exam, he was given a single dose of Solu-Medrol 80 mg 1. She has a smoking history, 35 years, quit 4 years ago. At this point he is stable [facility]. He will need to work with physical therapy. I have also recommended that he be followed by the medicine team for management of his COPD and balance issues. Pt Condition on Discharge: Fair Discharge Disposition: Disc to Psych Care Fac Discharge Time: <= 30 minutes Discharge Instructions DIET: Follow Instructions for: Diabetic Diet Activities you can perform: Weight Bearing as Kyle Olivo MD Dec 18, 2017 09:18
[2017-12-18] MEDS ORDERED: ZIPRASIDONE MESYLATE 20 MG VIAL IM PRN (16:15)
[2017-12-18] MEDS ORDERED: TEMAZEPAM 15 MG CAP PO SCH (21:00)
[2017-12-18] MEDS ORDERED: PRAVASTATIN SOD 20 MG TAB PO SCH (21:00)
== END 2017-12-18 17:34 | DRG 918 ==
LOC: NEPE 04:06 → NEDA 06:53 → HIMN 09:02
PROVIDERS: ADMIT Family Medicine; ATTEND Family Medicine
PROC: 0HQ1XZZ Repair Face Skin, External Approach (ICD-10-PCS; principal; 2017-12-17)
DX: T40.2X2A Poisoning by other opioids, intentional self-harm, initial encounter (principal); N17.9 Acute kidney failure, unspecified; F33.9 Major depressive disorder, recurrent, unspecified; I10 Essential (primary) hypertension; J44.9 Chronic obstructive pulmonary disease, unspecified; E11.9 Type 2 diabetes mellitus without complications; Z79.4 Long term (current) use of insulin; Z79.82 Long term (current) use of aspirin; B19.20 Unspecified viral hepatitis C without hepatic coma; S01.81XA Laceration without foreign body of other part of head, initial encounter; W19.XXXA Unspecified fall, initial encounter; M19.90 Unspecified osteoarthritis, unspecified site; Z95.1 Presence of aortocoronary bypass graft; R06.89 Other abnormalities of breathing; F10.129 Alcohol abuse with intoxication, unspecified; Y90.8 Blood alcohol level of 240 mg/100 ml or more; M54.5 Low back pain; G89.29 Other chronic pain; E66.9 Obesity, unspecified; Z68.32 Body mass index [BMI] 32.0-32.9, adult; Z87.891 Personal history of nicotine dependence
CPT/HCPCS: 36600; 70450; 71045; 72125; 72131; 80053; 80307; 81001; 82805; 83735; 83880; 84100; 84443; 85025; 85610; 85730; 87641; 93005; 94640; 94664; C9113; J0132; J1170; J1644; J2060; J2310; J2930; J3486; J7030; J7042; J7060; J7070

== ENCOUNTER 2017-12-18 17:11 | Inpatient (IN) | payer OTHER ==
[~2017-12-18] VITALS: Ht 172.7 cm; Wt 89.3 kg
[~2017-12-18 17:11] MED LIST changes: +Albuterol-Ipratropium Neb INH
[2017-12-18 18:00] VITALS: BP 121/57; PULSE 78; RESP 18; TEMP 98.1; O2SAT 98
[2017-12-18] MEDS ORDERED: LORazepam 2 MG TAB PO PRN (19:15)
[2017-12-18] MEDS ORDERED: FLUMAZENIL 0.5 MG/5 ML VIAL IV PUSH PRN (19:15)
[2017-12-18] MEDS ORDERED: LORazepam 2 MG/ML VIAL IV PUSH PRN ×4 (19:15)
[2017-12-18] MEDS ORDERED: LORazepam 1 MG TAB PO PRN (19:15)
[2017-12-18 19:30] VITALS: BP 147/84; PULSE 66; RESP 18; TEMP 97.9; O2SAT 93
[2017-12-19] VITALS (7 sets, daily range): BP systolic 136–202; BP diastolic 69–110; PULSE 64–82; RESP 20; TEMP 97.9–98.7; O2SAT 98–99
[2017-12-19] MEDS ORDERED: GLUCAGON 1 MG/ML VIAL OTHER PRN (00:15)
[2017-12-19] MEDS ORDERED: DEXTROSE 50% IN WATER 50 ML VIAL(D50) IV PUSH PRN (00:15)
[2017-12-19] MEDS ORDERED: RESP: ALBUTEROL 2.5 MG/IPRATROPIUM 0.5 MG NEB (PRN) NEB (00:15)
[2017-12-19] MEDS: cloNIDine HCL 0.2 MG TAB PO SCH ×3 (07:05→21:41)
[2017-12-19] MEDS ORDERED: ASPIRIN 325 MG TAB PO SCH (09:00)
[2017-12-19] MEDS ORDERED: SERTRALINE HCL 100 MG TAB PO SCH (09:00)
[2017-12-19] MEDS: DULoxetine HCl DR 30 MG CAP PO SCH (09:42)
[2017-12-19] MEDS: BACLOFEN 10 MG TAB PO SCH ×2 (09:42→21:41)
[2017-12-19] MEDS: PANTOPRAZOLE SOD 40 MG DELAYED RELEASE TAB PO SCH (09:42)
[2017-12-19] MEDS: METOPROLOL TARTRATE 100 MG TAB PO SCH ×2 (09:42→21:41)
[2017-12-19] MEDS: THIAMINE HCL 100 MG TAB PO SCH (09:42)
[2017-12-19] MEDS: BUDESONIDE-FORMOTEROL 80/4.5 MCG INHALER INH SCH ×2 (09:43→21:40)
[2017-12-19] MEDS: INSULIN ASPART SUPPLEMENTAL SCALE SQ SCH ×4 (09:43→21:40)
--- NOTE | 2017-12-19 11:13 | HHI.HP ---
Provisional Diagnosis Admission Date Dec 18, 2017 at 17:40 [place] I. Major depressive disorder, recurrent Certification of Person's Competence To Provide Express and Informed Consent I have personally examined Mal Black , a person being served at [facility] on, Dec 19, 2017 11:11. Express and informed consent means consent voluntarily given in writing, by a competent person, after sufficient explanation and disclosure of the subject matter involved to enable the person to make a knowing and willful decision without any element of force, fraud, deceit, duress, or other form of constraint or coercion. This person is 18 years of age or older, is not now known to be incompetent to consent to treatment with a guardian advocate, and does not have a health care surrogate or proxy currently making medical treatment decisions. I have found this person to be one of the following: [] Competent to provide express and informed consent, as defined above, for voluntary admission to this facility and is competent to provide express and informed consent for treatment. He/she has the consistent capacity to make well reasoned, willful, and knowing decisions concerning his or her medical or mental health treatment. The person fully and consistently understands the purpose of the admission for examination/placement and is fully capable of personally exercising all rights assured [place]xxx] Incompetent to provide express and informed consent to voluntary admission , and this is incompetent to provide express and informed consent to treatment. The person must be transferred to involuntary status and a petition for a guardian advocate filed with the Circuit Court. [] Refusing to provide express and informed consent to voluntary admission but is competent to provide express and informed consent for treatment. The person must be discharged or transferred to involuntary status. Form shall be completed within 24 hours of a person's arrival at the receiving facility and filed in the clinical record of each person: 1. Admitted on a voluntary basis 2. Permitted to provide express and informed consent to his/her own treatment 3. Allowed to transfer from involuntary to voluntary status 4. Prior to permitting a person to consent to his or her own treatment after having been previously found incompetent to consent to treatment. History of Present Illness Capacity: Has Capacity HPI Patient is a 62 y/o man, , domiciled with , unemployed on SSDI, , with past psychiatric history of depression, anxiety, alcohol use disorder, no prior psychiatric admissions, no prior suicide attempts, no prior self injurious behavior, with past medical history of COPD, DM, HTN, Hep. C, who was brought in by EMS under [place] act after suicide attempt via overdose in the context of alcohol intoxication and leaving him for another man which he was initially admitted to the medical service for stabilization and now transferred to the inpatient psychiatry unit for further evaluation and management. Patient was found lying on hospital bed, noted to have sutured laceration above right eye, noted with some psychomotor retardation but alert and cooperative with interview. Patient states that his had decided to be with someone else and was told this two days ago. He reports that he did not have anything left to live for and "took pills and drank some liquor". He does not recall having arrived to the hospital but states that his had called EMS. He states that the day of the suicide attempts he had taken 21 tablets of oxycodone and drank 2-3 bottles of liquor. He mentions that he had been drinking for a couple of days prior and states that he had been having increasing depressed mood due to chronic pain. He states feeling disappointed to be alive and continues with SI. BAL was 252, Utox: positive for cocaine. Family psychiatric history: cousin committed suicide Past psychiatric history: prior psychiatric diagnosis of depression, anxiety, alcohol use disorder, denies prior psychiatric admissions, no prior suicide attempts or self injurious behavior, denies history of abuse. Has outpatient psychiatrist at the [facility], medication regimen: bupropion 100mg BID, sertraline 200mg daily. Substance use history: alcohol use daily as stated above, denies use of any other substance. Past medical history: COPD, DM, HTN, Hep.C Allergies: Morphine Social history: , lives with , unemployed on SSDI, . Rebecca Black () [phone] Review of Systems Except as stated in HPI: all other systems reviewed are Neg Past Psych History Psychological trauma history denies Violence risk - others (6 mos) low Violence risk - self (6 mos) elevated due to recent suicide attempt Substance Abuse History Drugs/Alcohol past 12 months alcohol use daily as stated above, denies use of any other substance. Past Family Social History Coded Allergies: morphine (Verified Adverse Reaction, Severe, Itching, 12/17/17) Active Scripts [Albuterol-Ipratropium Neb] 1 AMPULE NEBU No Conflict Check, 1 AMPULE INH Q2HR NEB Y for WHEEZING for 14 Days, #90 AMPULE Prov:Kyle Andrew MD 12/18/17 Reported Medications Oxycodone (Oxycodone) 10 Mg Tab, 15 MG PO Q8H Y for PAIN, TAB 0 Refills 03/05/17 Temazepam (Restoril) 30 Mg Cap, 30 MG PO HS for Insomnia, #30 CAP 0 Refills 03/05/17 Simvastatin (Zocor) 10 Mg Tab, 10 MG PO HS for Cholesterol Management, #30 TAB 0 Refills 03/05/17 Sertraline (Zoloft) 100 Mg Tab, 200 MG PO BID, #30 TAB 0 Refills 03/05/17 Omeprazole Magnesium (Prilosec) 20 Mg Tab, 20 MG PO DAILY for Reflux 03/05/17 Naproxen (Naprosyn) 500 Mg Tab, 500 MG PO BID, #60 TAB 0 Refills 03/05/17 Metoprolol Tartrate (Metoprolol Tartrate) 100 Mg Tab, 100 MG PO BID, #60 TAB 0 Refills 03/05/17 Insulin Human NPH Inj (Novolin N Inj) 100 Unit/Ml Inj, 26 UNITS SQ BID 03/05/17 Glipizide (Glipizide) 10 Mg Tab, 10 MG PO DAILY for Blood Sugar Management, #30 TAB 0 Refills Take 30 minutes before a meal 03/05/17 Cetirizine (Cetirizine) 10 Mg Tab, 10 MG PO DAILY for Allergies, TAB 0 Refills 03/05/17 Bupropion HCl (Bupropion HCl) 100 Mg Tab, 200 MG PO BID for Control Depression, TAB 0 Refills 03/05/17 Budesonide-Formoterol Inh (Symbicort Inh) 80-4.5 Mcg/Act Aero, 2 PUFF INH Q12HR for Asthma Management, #1 INHALER 0 Refills 03/05/17 Baclofen (Baclofen) 10 Mg Tab, 10 MG PO BID for Muscle Spasm, TAB 0 Refills 03/05/[address] (Aspirin EC) 81 Mg Tabdr, 81 MG PO DAILY, TAB 0 Refills 03/05/17 Allopurinol (Allopurinol) 100 Mg Tab, 100 MG PO DAILY for Gout, #30 TAB 0 Refills 03/05/17 Albuterol 18 GM Inh (Ventolin Hfa 18 GM Inh) 90 Mcg/Act Aer, 2 PUFF INH TID Y for SHORTNESS OF BREATH, #1 INHALER 0 Refills 03/05/17 Current Medications Medications (Trade) Dose Ordered Sig/Anuradha Route Start Time Stop Time Status Last Admin (Ativan) 1 mg Q4H PRN PO 12/18/17 19:15 (Ativan Inj) 1 mg Q4H PRN IV PUSH 12/18/17 19:15 (Ativan) 2 mg Q2H PRN PO 12/18/17 19:15 (Ativan Inj) 2 mg Q2H PRN IV PUSH 12/18/17 19:15 (Ativan Inj) 2 mg Q1H PRN IV PUSH 12/18/17 19:15 (Ativan Inj) 2 mg Q15M PRN IV PUSH 12/18/17 19:15 (Romazicon Inj) 0.2 mg Q1M PRN IV PUSH 12/18/17 19:15 (Cymbalta Dr) 30 mg DAILY PO 12/19/17 09:00 12/19/17 09:42 (Lioresal) 10 mg BID PO 12/19/17 09:00 12/19/17 09:42 (Lopressor) 100 mg Q12HR PO 12/19/17 09:00 12/19/17 09:42 (Catapres) 0.2 mg Q8HR PO 12/19/17 06:00 12/19/17 07:05 (Vitamin B1) 100 mg DAILY PO 12/19/17 09:00 12/19/17 09:42 (Zoloft) 200 mg BID PO 12/19/17 09:00 12/19/17 09:43 (Symbicort 80-4.5 Mcg Inh) 2 puff Q12HR INH 12/19/17 09:00 12/19/17 09:43 (Protonix) 40 mg DAILY PO 12/19/17 09:00 12/19/17 09:42 (Duoneb Neb) 1 ampule Q4HR NEB PRN NEB 12/19/17 00:15 (D50w (Vial) Inj) 50 ml UNSCH PRN IV PUSH 12/19/17 00:15 (Glucagon Inj) 1 mg UNSCH PRN OTHER 12/19/17 00:15 (NovoLOG SUPPLEMENTAL SCALE) 1 ACHS SLIDING SCALE SQ 12/19/17 08:00 12/19/17 09:43 (Aspirin Chew) 81 mg DAILY PO 12/19/17 10:15 Family Psych History cousin completed suicide Social History , lives with , unemployed on SSDI, . Rebecca Black () Patient's Strengths (min. 2) verbal and communicative Physical Exam Patient noted with laceration above right eye with sutures, no gross motor abnormalities, no tremor or EPS, noted with psychomotor retardation. Vital Signs Vital Signs Date Time Temp Pulse Resp B/P (MAP) Pulse Ox O2 Delivery O2 Flow Rate FiO2 12/19/17 09:40 82 162/86 (111) 12/19/17 07:43 97.9 20 99 Mental Status Examination Appearance: Disheveled Consciousness: Alert Orientation: Person, Place Motor Activity: Other Speech: Slow Language: Adequate Fund of Knowledge: Inadequate Attention and Concentration: Inadequate Memory: Impaired (revolving events surrounding suicide attempt) Mood: Sad, Other (dysphoric) Affect: Blunt Thought Process & Associations: Intact Thought Content: Appropriate Hallucination Type: None Delusion Type: None Suicidal Ideation: Yes Suicidal Plan: No Suicidal Intention: Yes Homicidal Ideation: No Homicidal Plan: No Homicidal Intention: No Insight: Fair Judgment: Impulsive Assessment & Plan Problem List: (1) Major depressive disorder, recurrent ICD Codes: F33.9 - Major depressive disorder, recurrent, unspecified Assessment & Plan Estimated LOS: 7-10 days. Patient is a 62 y/o man, who carries a diagnosis of depression, anxiety with no prior psychiatric admission or suicide attempts who was admitted due to recent suicide attempt in the context of leaving him and alcohol/cocaine intoxication. Patient continues to endorse feeling depressed with continued suicide ideation. Petition for involuntary admission started, second opinion requested. Will place patient on CIWA, continue cymbalta 30mg PO daily and sertraline 200mg PO daily, hospitalist consult pending. Collateral information pending from . Monitor mood and behavior. Discharge planning in progress. Discharge Planning Return back to residence once psychiatrically stable. Jamil Somers MD Dec 19, 2017 11:13
[2017-12-19] MEDS ORDERED: diphenhydrAMINE HCL 50 MG CAP PO PRN (11:15)
--- NOTE | 2017-12-19 12:11 | PD.CONS ---
[facility] Reason for Consult DT's Primary Care Physician Unknown Diagnoses: History of Present Illness 62-year-old male who was admitted through the ER into the ICU following a purposeful overdose of his home medications in an attempt to commit suicide. He ingested a large amount of Percocet which had Tylenol. He was given Mucomyst for a total of 4 doses in the ICU. Yesterday he was medically stable for transfer over to [facility]. Following that order he had tremors according to the nurse in the late afternoon which required multiple doses of Ativan per CIWA protocol. He still remained agitated but responded favorably to a single dose of Geodon. Today he is comfortable, she denies that he was withdrawing from alcohol and says that it was following a cold sponge bath that caused him to sugar. He shows me his hands which are not tremulous. His only request today is to have a nicotine patch. Review of Systems Constitutional: DENIES: Diaphoretic episodes, Fatigue, Fever, Weight gain, Weight loss Ears, nose, mouth, throat: DENIES: Tinnitus, Hearing loss, Vertigo, Nasal discharge Respiratory: COMPLAINS OF: Wheezing, DENIES: Apneas, Cough, Snoring Cardiovascular: DENIES: Chest pain, Palpitations, Syncope, Dyspnea on Exertion Gastrointestinal: DENIES: Abdominal pain, Black stools, Bloody stools, Constipation, Diarrhea, Nausea, Vomiting, Difficulty Swallowing Musculoskeletal: DENIES: Joint pain Hematologic/lymphatic: DENIES: Bruising, Lymphadenopathy Immunologic/allergic: DENIES: Eczema, Urticaria Psychiatric: COMPLAINS OF: Mood changes, Depression, Suicidal Ideation, DENIES : Anxiety, Confusion Past Family Social History Allergies: Coded Allergies: morphine (Verified Adverse Reaction, Severe, Itching, 12/17/17) Past Medical History Major depression, COPD, coronary artery disease, myocardial infarction, CHF, hypertension, hep C Past Surgical History Heart catheterization 2004, CABG X6 in 2004, L-spine fusion Family History Coronary artery disease Social History Smokes 2 packs of cigarettes per day, does not admit to alcoholism Physical Exam Vital Signs Vital Signs Date Time Temp Pulse Resp B/P (MAP) Pulse Ox O2 Delivery O2 Flow Rate FiO2 12/19/17 09:40 82 162/86 (111) 12/19/17 07:43 97.9 78 20 136/69 (91) 99 12/19/17 01:30 64 98 12/18/17 18:00 98.1 78 18 121/57 (21) 98 Physical Exam GENERAL: This is a well-nourished, well-developed patient, in no apparent distress. SKIN: No rashes, 5 cm laceration on right forehead, repaired in the ER HEAD: Normocephalic. No temporal or scalp tenderness. EYES: Pupils equal round and reactive. Extraocular motions intact. No scleral icterus. No injection or drainage. ENT: Nose without bleeding, purulent drainage or septal hematoma. Throat without erythema, tonsillar hypertrophy or exudate. Uvula midline. Airway patent. NECK: Trachea midline. No JVD or lymphadenopathy. Supple, nontender, no meningeal signs. CARDIOVASCULAR: Regular rate and rhythm without murmurs, gallops, or rubs. RESPIRATORY: Scattered wheezes throughout. Breath sounds equal bilaterally. No rales, or rhonchi. GASTROINTESTINAL: Abdomen soft, non-tender, nondistended. No hepato-splenomegaly , or palpable masses. No guarding. MUSCULOSKELETAL: Lower extremity weakness. No joint tenderness, effusion, or edema noted. No calf tenderness. Negative Homans sign bilaterally. NEUROLOGICAL: Awake and alert. Cranial nerves II through XII intact. Motor and sensory grossly within normal limits. Muscle strength is intact but coordination and generalized weakness causing dysfunction.. Normal speech. Assessment and Plan Problem List: (1) Major depressive disorder, recurrent ICD Code: F33.9 - Major depressive disorder, recurrent, unspecified (2) COPD (chronic obstructive pulmonary disease) ICD Code: J44.9 - Chronic obstructive pulmonary disease, unspecified Assessment and Plan Suicide attempt with medication overdose Patient has been maximally treated with Mucomyst in the ICU, stable She will be undergoing treatment with psychiatry for psychiatric stabilization prior to discharge COPD, tobacco abuse Patient smokes 2 packs of cigarettes per day He has asymptomatic wheezing throughout his lungs Duo nebs ordered scheduled 3 times daily Continue oxygen for comfort Counseled to quit smoking NicoDerm patch ordered Hypertension Pressure is intermittently elevated Possibly related to nicotine withdrawal or anxiety Continue metoprolol Follow clinically after NicoDerm patch is in place Hospitalist team to reevaluate tomorrow Generalized weakness Patient reports he has been weak at home as well, his overdose was a further setback Physical therapy requested for evaluation and treatment Will follow clinically Type 2 diabetes Last hemoglobin A1c was 7.2 sliding scale insulin coverage with Accu-Cheks Diabetic diet DVT prophylaxis Patient has a history of coronary artery disease and previous ID Somewhat high risk for clot formation Will add Lovenox prophylaxis dose Kyle Andrew MD Dec 19, 2017 12:11
[2017-12-19] MEDS: ASPIRIN 81 MG CHEW TAB PO SCH (12:19)
[2017-12-19] MEDS: NICOTINE 21 MG/24 HR PATCH T-DERMAL SCH (12:35)
[2017-12-19] MEDS: ENOXAPARIN SODIUM 40 MG/0.4 ML SYRINGE SQ SCH (15:27)
[2017-12-19] MEDS: LORazepam 1 MG TAB PO PRN ×2 (16:49→23:31)
[2017-12-19] MEDS: ENALAPRILAT 2.5 MG/2 ML VIAL IV PUSH PRN (18:53)
[2017-12-19] MEDS: REMOVE OLD PATCH T-DERMAL SCH (21:00)
[2017-12-20 05:58] VITALS: BP 172/79; PULSE 73; RESP 20; TEMP 98.2; O2SAT 98
[2017-12-20] MEDS: cloNIDine HCL 0.2 MG TAB PO SCH ×3 (06:49→20:42)
[2017-12-20 07:05] VITALS: BP 156/99
[2017-12-20 07:08] LABS: AUTOMATED NEUTROPHIL # 6.2 TH/MM3 (1.8-7.7); BASOPHIL # 0.1 TH/MM3 (0-0.2); BASOPHIL % 1.2 % (0.0-2.0); EOSINOPHIL # 0.3 TH/MM3 (0-0.4); EOSINOPHIL % 2.9 % (0.0-4.0); HEMATOCRIT 33.9 % (39.0-51.0); HEMOGLOBIN 11.5 GM/DL (13.0-17.0); LYMPH % 22.1 % (9.0-44.0); MEAN CELL VOLUME 85.5 FL (80.0-100.0); MEAN PLATELET VOLUME 8.8 FL (7.0-11.0); MONO % 6.7 % (0.0-8.0); MONOCYTE # 0.6 TH/MM3 (0-0.9); NEUT % 67.1 % (16.0-70.0); PLATELET COUNT 393 TH/MM3 (150-450); RED BLOOD COUNT 3.96 MIL/MM3 (4.50-5.90); RED CELL DISTRIBUTION WIDTH 15.8 % (11.6-17.2); WHITE BLOOD COUNT 9.2 TH/MM3 (4.0-11.0)
[2017-12-20 07:43] LABS: BICARBONATE 27.8 MEQ/L (21.0-32.0); CALCIUM 9.4 MG/DL (8.5-10.1); CREATININE 0.87 MG/DL (0.60-1.30)
[2017-12-20] MEDS: RESP: ALBUTEROL 2.5 MG/IPRATROPIUM 0.5 MG NEB (SCH) NEB ×2 (08:00→16:00)
[2017-12-20] MEDS: INSULIN ASPART SUPPLEMENTAL SCALE SQ SCH ×4 (08:00→20:49)
[2017-12-20] MEDS: NICOTINE 21 MG/24 HR PATCH T-DERMAL SCH (08:56)
[2017-12-20] MEDS: DULoxetine HCl DR 30 MG CAP PO SCH (08:57)
[2017-12-20] MEDS: PANTOPRAZOLE SOD 40 MG DELAYED RELEASE TAB PO SCH (08:57)
[2017-12-20] MEDS: SERTRALINE HCL 100 MG TAB PO SCH (08:57)
[2017-12-20] MEDS: ASPIRIN 81 MG CHEW TAB PO SCH (08:57)
[2017-12-20] MEDS: METOPROLOL TARTRATE 100 MG TAB PO SCH ×2 (08:57→20:42)
[2017-12-20] MEDS: BACLOFEN 10 MG TAB PO SCH ×2 (08:57→20:42)
[2017-12-20] MEDS: THIAMINE HCL 100 MG TAB PO SCH (08:57)
[2017-12-20] MEDS: BUDESONIDE-FORMOTEROL 80/4.5 MCG INHALER INH SCH ×2 (08:58→20:42)
--- NOTE | 2017-12-20 09:02 | PD.PSY.CON ---
Provisional Diagnosis Admission Date Dec 18, 2017 at 17:40 [place]. Major depressive disorder, recurrent History of Present Illness Service Psychiatry Consult Requested By Dr. Somers Reason for Consult Second opinion petition supporting Margie jesus Primary Care Physician Unknown HPI Patient is a 62 y/o man, , domiciled with , unemployed on SSDI, , with past psychiatric history of depression, anxiety, alcohol use disorder, no prior psychiatric admissions, no prior suicide attempts, no prior self injurious behavior, with past medical history of COPD, DM, HTN, Hep. C, who was brought in by EMS under Margie jesus after suicide attempt via overdose in the context of alcohol intoxication and leaving him for another man which he was initially admitted to the medical service for stabilization and now transferred to the inpatient psychiatry unit for further evaluation and management. Patient was found lying on hospital bed, noted to have sutured laceration above right eye, noted with some psychomotor retardation but alert and cooperative with interview. Patient states that his had decided to be with someone else and was told this two days ago. He reports that he did not have anything left to live for and "took pills and drank some liquor". He does not recall having arrived to the hospital but states that his had called EMS. He states that the day of the suicide attempts he had taken 21 tablets of oxycodone and drank 2-3 bottles of liquor. He mentions that he had been drinking for a couple of days prior and states that he had been having increasing depressed mood due to chronic pain. He states feeling disappointed to be alive and continues with SI. BAL was 252, Utox: positive for cocaine. Family psychiatric history: cousin committed suicide Past psychiatric history: prior psychiatric diagnosis of depression, anxiety, alcohol use disorder, denies prior psychiatric admissions, no prior suicide attempts or self injurious behavior, denies history of abuse. Has outpatient psychiatrist at the [facility], medication regimen: bupropion 100mg BID, sertraline 200mg daily. Substance use history: alcohol use daily as stated above, denies use of any other substance. Past medical history: COPD, DM, HTN, Hep.C Allergies: Morphine Social history: , lives with , unemployed on SSDI, . Rebecca Black () [phone] 12/20/2017 Above note dictated by Dr. Somers reviewed and agreed with. Patient is admitted to Dr. Somers service under the Hanson act. Dr. Somers assigned first opinion petition supporting [facility]. Patient seen by me in his room with RN and medical student Trin[place]. Patient depressed does acknowledge suicide attempt after having a fight with his . He is vague about continued suicidality at this time. At this time I agree with Dr. Somers patient meets criteria for for involuntary psychiatric hospitalization under the Hanson act thus I will cosign second opinion petition supporting [place] act Past Family Social History Coded Allergies: morphine (Verified Adverse Reaction, Severe, Itching, 12/17/17) Active Scripts [Albuterol-Ipratropium Neb] 1 AMPULE NEBU No Conflict Check, 1 AMPULE INH Q2HR NEB Y for WHEEZING for 14 Days, #90 AMPULE Prov:Kyle Andrew MD 12/18/17 Reported Medications Oxycodone (Oxycodone) 10 Mg Tab, 15 MG PO Q8H Y for PAIN, TAB 0 Refills 03/05/17 Temazepam (Restoril) 30 Mg Cap, 30 MG PO HS for Insomnia, #30 CAP 0 Refills 03/05/17 Simvastatin (Zocor) 10 Mg Tab, 10 MG PO HS for Cholesterol Management, #30 TAB 0 Refills 03/05/17 Sertraline (Zoloft) 100 Mg Tab, 200 MG PO BID, #30 TAB 0 Refills 03/05/17 Omeprazole Magnesium (Prilosec) 20 Mg Tab, 20 MG PO DAILY for Reflux 03/05/17 Naproxen (Naprosyn) 500 Mg Tab, 500 MG PO BID, #60 TAB 0 Refills 03/05/17 Metoprolol Tartrate (Metoprolol Tartrate) 100 Mg Tab, 100 MG PO BID, #60 TAB 0 Refills 03/05/17 Insulin Human NPH Inj (Novolin N Inj) 100 Unit/Ml Inj, 26 UNITS SQ BID 03/05/17 Glipizide (Glipizide) 10 Mg Tab, 10 MG PO DAILY for Blood Sugar Management, #30 TAB 0 Refills Take 30 minutes before a meal 03/05/17 Cetirizine (Cetirizine) 10 Mg Tab, 10 MG PO DAILY for Allergies, TAB 0 Refills 03/05/17 Bupropion HCl (Bupropion HCl) 100 Mg Tab, 200 MG PO BID for Control Depression, TAB 0 Refills 03/05/17 Budesonide-Formoterol Inh (Symbicort Inh) 80-4.5 Mcg/Act Aero, 2 PUFF INH Q12HR for Asthma Management, #1 INHALER 0 Refills 03/05/17 Baclofen (Baclofen) 10 Mg Tab, 10 MG PO BID for Muscle Spasm, TAB 0 Refills 03/05/[address] (Aspirin EC) 81 Mg Tabdr, 81 MG PO DAILY, TAB 0 Refills 03/05/17 Allopurinol (Allopurinol) 100 Mg Tab, 100 MG PO DAILY for Gout, #30 TAB 0 Refills 03/05/17 Albuterol 18 GM Inh (Ventolin Hfa 18 GM Inh) 90 Mcg/Act Aer, 2 PUFF INH TID Y for SHORTNESS OF BREATH, #1 INHALER 0 Refills 03/05/17 Current Medications Medications (Trade) Dose Ordered Sig/Anuradha Route Start Time Stop Time Status Last Admin (Ativan) 1 mg Q4H PRN PO 12/18/17 19:15 (Ativan Inj) 1 mg Q4H PRN IV PUSH 12/18/17 19:15 (Ativan) 2 mg Q2H PRN PO 12/18/17 19:15 (Ativan Inj) 2 mg Q2H PRN IV PUSH 12/18/17 19:15 (Ativan Inj) 2 mg Q1H PRN IV PUSH 12/18/17 19:15 (Ativan Inj) 2 mg Q15M PRN IV PUSH 12/18/17 19:15 (Romazicon Inj) 0.2 mg Q1M PRN IV PUSH 12/18/17 19:15 (Cymbalta Dr) 30 mg DAILY PO 12/19/17 09:00 12/20/17 08:57 (Lioresal) 10 mg BID PO 12/19/17 09:00 12/20/17 08:57 (Lopressor) 100 mg Q12HR PO 12/19/17 09:00 12/20/17 08:57 (Catapres) 0.2 mg Q8HR PO 12/19/17 06:00 12/20/17 06:49 (Vitamin B1) 100 mg DAILY PO 12/19/17 09:00 12/20/17 08:57 (Symbicort 80-4.5 Mcg Inh) 2 puff Q12HR INH 12/19/17 09:00 12/20/17 08:58 (Protonix) 40 mg DAILY PO 12/19/17 09:00 12/20/17 08:57 (Duoneb Neb) 1 ampule Q4HR NEB PRN NEB 12/19/17 00:15 (D50w (Vial) Inj) 50 ml UNSCH PRN IV PUSH 12/19/17 00:15 (Glucagon Inj) 1 mg UNSCH PRN OTHER 12/19/17 00:15 (NovoLOG SUPPLEMENTAL SCALE) 1 ACHS SLIDING SCALE SQ 12/19/17 08:00 12/20/17 08:00 (Aspirin Chew) 81 mg DAILY PO 12/19/17 10:15 12/20/17 08:57 (Zoloft) 200 mg DAILY PO 12/20/17 09:00 12/20/17 08:57 (Benadryl) 50 mg HS PRN PO 12/19/17 11:15 (Habitrol 21 Mg Patch.24 Hr) 1 patch DAILY T-DERMAL 12/19/17 11:45 12/20/17 08:56 Miscellaneous Information 1 HS T-DERMAL 12/19/17 21:00 12/19/17 21:00 (Duoneb Neb) 1 ampule Q8HR WHILE AWAKE NEB NEB 12/19/17 11:45 (Lovenox Inj) 40 mg Q24H SQ 12/19/17 12:15 12/19/17 15:27 (Ativan) 1 mg Q6H PRN PO 12/19/17 16:45 12/19/17 23:31 (Vasotec Inj) 2.5 mg Q6H PRN IV PUSH 12/19/17 18:30 12/19/17 18:53 (Roxicodone) 10 mg Q8H PRN PO 12/19/17 18:30 12/20/17 04:49 Patient's Strengths (min. 2) verbal and communicative Physical Exam Vital Signs Vital Signs Date Time Temp Pulse Resp B/P (MAP) Pulse Ox O2 Delivery O2 Flow Rate FiO2 12/20/17 07:05 156/99 (118) 12/20/17 05:58 98.2 73 20 98 I/O 12/20/17 12/20/17 12/21/17 08:00 16:00 00:00 Intake Total 240 ml Balance 240 ml Lab Results Test 12/20/17 06:00 White Blood Count 9.2 TH/MM3 Red Blood Count 3.96 MIL/MM3 Hemoglobin 11.5 GM/DL Hematocrit 33.9 % Mean Corpuscular Volume 85.5 FL Mean Corpuscular Hemoglobin 29.0 PG Mean Corpuscular Hemoglobin Concent 34.0 % Red Cell Distribution Width 15.8 % Platelet Count 393 TH/MM3 Mean Platelet Volume 8.8 FL Neutrophils (%) (Auto) 67.1 % Lymphocytes (%) (Auto) 22.1 % Monocytes (%) (Auto) 6.7 % Eosinophils (%) (Auto) 2.9 % Basophils (%) (Auto) 1.2 % Neutrophils # (Auto) 6.2 TH/MM3 Lymphocytes # (Auto) 2.0 TH/MM3 Monocytes # (Auto) 0.6 TH/MM3 Eosinophils # (Auto) 0.3 TH/MM3 Basophils # (Auto) 0.1 TH/MM3 CBC Comment DIFF FINAL Differential Comment Blood Urea Nitrogen 11 MG/DL Creatinine 0.87 MG/DL Random Glucose 152 MG/DL Calcium Level 9.4 MG/DL Sodium Level 132 MEQ/L Potassium Level 4.5 MEQ/L Chloride Level 95 MEQ/L Carbon Dioxide Level 27.8 MEQ/L Anion Gap 9 MEQ/L Estimat Glomerular Filtration Rate 89 ML/MIN Mental Status Examination Appearance: Disheveled Consciousness: Alert Orientation: Person, Place Motor Activity: Other Speech: Slow Language: Adequate Fund of Knowledge: Inadequate Attention and Concentration: Inadequate Memory: Impaired (revolving events surrounding suicide attempt) Mood: Sad, Other (dysphoric) Affect: Blunt Thought Process & Associations: Intact Thought Content: Appropriate Hallucination Type: None Delusion Type: None Suicidal Ideation: Yes Suicidal Plan: No Suicidal Intention: Yes Homicidal Ideation: No Homicidal Plan: No Homicidal Intention: No Insight: Fair Judgment: Impulsive Assessment & Plan Problem List: (1) Major depressive disorder, recurrent ICD Codes: F33.9 - Major depressive disorder, recurrent, unspecified Assessment & Plan Estimated LOS: Ramiro Sue MD Dec 20, 2017 09:02
[2017-12-20 09:25] VITALS: O2SAT 98
--- NOTE | 2017-12-20 09:43 | HHI.PYPN ---
Subjective Remarks Patient seen for follow, chart reviewed. Discussion nursing staff reported that there have been no behavioral disturbances, noted with slightly elevated blood pressure readings. Patient was found lying hospital bed noted B better spirits today noted B, cooperative. Patient states that he is feeling "better" other continues to feel depressed usually 7 out of 10 (10 being its worst) but also states that he usually around this level of depression chronically secondary to ongoing chronic pain which has interfered with his functions and ability to enjoy certain activities. Patient mentions that he had spoken with his yesterday and that she told him she had a "minor indiscretion" but that they were working to get back together now. He mentions that he had relapsed to alcohol use after 8 months sobriety recently but denies having any drug use although urine toxicology was positive for cocaine. He mentions having relapsed to alcohol use as his pain was not being controlled with current medication regimen. He reports having slept better last evening mood being "alright", denying any suicide ideations today. Review of Systems Except as stated in HPI: all other systems reviewed are Neg Mental Status Examination Appearance: Disheveled (Less so today) Consciousness: Alert Orientation: Person, Place Motor Activity: Other Speech: Slow Language: Adequate Fund of Knowledge: Inadequate Attention and Concentration: Inadequate Memory: Impaired (revolving events surrounding suicide attempt) Mood: Sad (Less today) Affect: Blunt (Slightly more reactive) Thought Process & Associations: Intact Thought Content: Appropriate Hallucination Type: None Delusion Type: None Suicidal Ideation: Yes (Denies today) Suicidal Plan: No Suicidal Intention: No Homicidal Ideation: No Homicidal Plan: No Homicidal Intention: No Insight: Fair Judgment: Impulsive Results Labs Labs reviewed Test 12/20/17 06:00 White Blood Count 9.2 TH/MM3 Red Blood Count 3.96 MIL/MM3 Hemoglobin 11.5 GM/DL Hematocrit 33.9 % Mean Corpuscular Volume 85.5 FL Mean Corpuscular Hemoglobin 29.0 PG Mean Corpuscular Hemoglobin Concent 34.0 % Red Cell Distribution Width 15.8 % Platelet Count 393 TH/MM3 Mean Platelet Volume 8.8 FL Neutrophils (%) (Auto) 67.1 % Lymphocytes (%) (Auto) 22.1 % Monocytes (%) (Auto) 6.7 % Eosinophils (%) (Auto) 2.9 % Basophils (%) (Auto) 1.2 % Neutrophils # (Auto) 6.2 TH/MM3 Lymphocytes # (Auto) 2.0 TH/MM3 Monocytes # (Auto) 0.6 TH/MM3 Eosinophils # (Auto) 0.3 TH/MM3 Basophils # (Auto) 0.1 TH/MM3 CBC Comment DIFF FINAL Differential Comment Blood Urea Nitrogen 11 MG/DL Creatinine 0.87 MG/DL Random Glucose 152 MG/DL Calcium Level 9.4 MG/DL Sodium Level 132 MEQ/L Potassium Level 4.5 MEQ/L Chloride Level 95 MEQ/L Carbon Dioxide Level 27.8 MEQ/L Anion Gap 9 MEQ/L Estimat Glomerular Filtration Rate 89 ML/MIN Vitals/IOs Vital Signs Date Time Temp Pulse Resp B/P (MAP) Pulse Ox O2 Delivery O2 Flow Rate FiO2 12/20/17 09:25 98 Nasal Cannula 2.00 12/20/17 07:05 156/99 (118) 12/20/17 05:58 98.2 73 20 Intake and Output 12/20/17 12/20/17 12/21/17 08:00 16:00 00:00 Intake Total 240 ml Balance 240 ml Assessment & Plan Problem List: (1) Major depressive disorder, recurrent ICD Codes: F33.9 - Major depressive disorder, recurrent, unspecified Assessment & Plan Patient this time continues report feeling depressed but states that his mood is better he also has spoken to his , denying any suicide ideations today. We will continue current treatment for now, continue monitor mood and behavior, and continue monitor improvement of mood.. Continue recommendations as per prior medical team. Discharge planning in progress. Justification for Cont. Inpt. At risk for further decompensation if at lower level of care Discharge Planning Patient to return back his residence. Jamil Somers MD Dec 20, 2017 09:43
[2017-12-20] MEDS: LORazepam 1 MG TAB PO PRN (10:48)
[2017-12-20] MEDS: ENOXAPARIN SODIUM 40 MG/0.4 ML SYRINGE SQ SCH (12:19)
--- NOTE | 2017-12-20 13:20 | HHI.PR ---
Subjective Remarks Patient has no complaints today, states he is feeling better following breathing treatments. He would like to go home but understands he needs further psychiatric evaluation. Objective Vitals Vital Signs Date Time Temp Pulse Resp B/P (MAP) Pulse Ox O2 Delivery O2 Flow Rate FiO2 12/20/17 09:25 98 Nasal Cannula 2.00 12/20/17 07:05 156/99 (118) 12/20/17 05:58 98.2 73 20 172/79 (110) 98 12/19/17 23:46 76 166/94 (118) 12/19/17 21:00 79 185/87 (119) 12/19/17 19:02 78 189/89 (122) 12/19/17 18:37 98.7 72 20 202/110 (140) 99 I/O 12/19/17 12/19/17 12/19/17 12/20/17 12/20/17 12/20/17 07:00 15:00 23:00 07:00 15:00 23:00 Intake Total 0 ml 1200 ml 240 ml Balance 0 ml 1200 ml 240 ml Intake Oral 0 ml 1200 ml 240 ml # Voids 2 3 3 1 # Bowel Movements 1 Result Diagram: 12/20/17 0600 12/20/17 0600 Objective Remarks GENERAL: Well-nourished, well-developed patient. SKIN: Warm and dry. Healing 4 cm laceration on right forehead HEAD: Normocephalic. EYES: No scleral icterus. No injection or drainage. NECK: Supple, trachea midline. No JVD or lymphadenopathy. CARDIOVASCULAR: Regular rate and rhythm without murmurs, gallops, or rubs. RESPIRATORY: Breath sounds equal bilaterally, mild scattered wheezing. No accessory muscle use. GASTROINTESTINAL: Abdomen soft, non-tender, nondistended. EXTREMITIES: No cyanosis, or edema. NEUROLOGICAL: Awake, alert, and oriented x 3. Non-focal. A/P Problem List: (1) Major depressive disorder, recurrent ICD Code: F33.9 - Major depressive disorder, recurrent, unspecified (2) COPD (chronic obstructive pulmonary disease) ICD Code: J44.9 - Chronic obstructive pulmonary disease, unspecified Assessment and Plan Suicide attempt with medication overdose Patient has been maximally treated with Mucomyst in the ICU, stable She will be undergoing treatment with psychiatry for psychiatric stabilization prior to discharge COPD, tobacco abuse Patient smokes 2 packs of cigarettes per day Improved lung sounds following duo nebs Continue scheduled duo nebs Continue oxygen for comfort Counseled to quit smoking Continue NicoDerm patch Hypertension High blood pressure remains mostly elevated despite addition of enalapril Starting amlodipine Continue metoprolol Generalized weakness Patient reports he has been weak at home as well, his overdose was a further setback Continue work with physical therapy Will follow clinically Type 2 diabetes Last hemoglobin A1c was 7.2 sliding scale insulin coverage with Accu-Cheks Diabetic diet DVT prophylaxis Kyle Trotter MD Dec 20, 2017 13:20
[2017-12-20 18:06] VITALS: BP 173/81; PULSE 67; RESP 18; TEMP 97.9; O2SAT 96
[2017-12-20] MEDS: REMOVE OLD PATCH T-DERMAL SCH (20:42)
[2017-12-20 22:30] VITALS: BP 176/85; PULSE 85; O2SAT 97
[2017-12-21] VITALS (7 sets, daily range): BP systolic 102–186; BP diastolic 51–87; PULSE 58–102; RESP 16–20; TEMP 98.4–98.5; O2SAT 95–98
[2017-12-21] MEDS: ENALAPRILAT 2.5 MG/2 ML VIAL IV PUSH PRN (01:50)
[2017-12-21] MEDS: LORazepam 1 MG TAB PO PRN (02:15)
[2017-12-21] MEDS: cloNIDine HCL 0.2 MG TAB PO SCH ×3 (06:09→22:28)
[2017-12-21] MEDS: RESP: ALBUTEROL 2.5 MG/IPRATROPIUM 0.5 MG NEB (SCH) NEB ×2 (07:52→15:25)
[2017-12-21] MEDS: INSULIN ASPART SUPPLEMENTAL SCALE SQ SCH ×4 (08:00→21:00)
[2017-12-21] MEDS: DULoxetine HCl DR 30 MG CAP PO SCH (09:00)
[2017-12-21] MEDS: ASPIRIN 81 MG CHEW TAB PO SCH (09:00)
[2017-12-21] MEDS: BUDESONIDE-FORMOTEROL 80/4.5 MCG INHALER INH SCH ×2 (09:00→22:28)
[2017-12-21] MEDS: THIAMINE HCL 100 MG TAB PO SCH (09:00)
[2017-12-21] MEDS: METOPROLOL TARTRATE 100 MG TAB PO SCH ×2 (09:00→22:28)
[2017-12-21] MEDS: SERTRALINE HCL 100 MG TAB PO SCH (09:00)
[2017-12-21] MEDS: NICOTINE 21 MG/24 HR PATCH T-DERMAL SCH (09:00)
[2017-12-21] MEDS: PANTOPRAZOLE SOD 40 MG DELAYED RELEASE TAB PO SCH (09:00)
[2017-12-21] MEDS: BACLOFEN 10 MG TAB PO SCH ×2 (09:00→22:28)
--- NOTE | 2017-12-21 11:54 | HHI.PYPN ---
Subjective Remarks Reviewed electronic medical record and discussed case with staff. Follow-up was conducted with ARIELLE Dowd present. She reports that patient has been compliant and cooperative. Patient was found sleeping in his bed. He awakens to verbal stimuli. Reports that he has been sleeping well his appetite has been good. He denies any side effects from his current medication regimen. He reports his depression as 3 out of 10. When asked what he attributed the improvement from yesterday to today to he responded, "time, talking to my , I realize know everything is going to be okay". Mental Status Examination Appearance: Disheveled (Less so today) Consciousness: Alert Orientation: Person, Place Motor Activity: Other Speech: Slow Language: Adequate Fund of Knowledge: Inadequate Attention and Concentration: Inadequate Memory: Impaired (revolving events surrounding suicide attempt) Mood: Sad (Less today) Affect: Blunt (Slightly more reactive) Thought Process & Associations: Intact Thought Content: Appropriate Hallucination Type: None Delusion Type: None Suicidal Ideation: Yes (Denies today) Suicidal Plan: No Suicidal Intention: No Homicidal Ideation: No Homicidal Plan: No Homicidal Intention: No Insight: Fair Judgment: Impulsive Results Vitals/IOs Vital Signs Date Time Temp Pulse Resp B/P (MAP) Pulse Ox O2 Delivery O2 Flow Rate FiO2 12/21/17 07:54 95 21 12/21/17 06:51 162/78 (106) 12/21/17 06:16 98.4 64 20 12/20/17 09:25 Nasal Cannula 2.00 Intake and Output 12/21/17 12/21/17 12/22/17 08:00 16:00 00:00 Intake Total 360 ml 360 ml Balance 360 ml 360 ml Assessment & Plan Problem List: (1) Major depressive disorder, recurrent ICD Codes: F33.9 - Major depressive disorder, recurrent, unspecified Assessment & Plan Estimated LOS: Continue with current treatment plan. Attending psychiatrist will reevaluate on Saturday. Days Justification for Cont. Inpt. Moving this patient to a lower level of care would likely result in a decompensation. Wandy Dent Dec 21, 2017 11:54
[2017-12-21] MEDS: ENOXAPARIN SODIUM 40 MG/0.4 ML SYRINGE SQ SCH (12:03)
--- NOTE | 2017-12-21 14:09 | HHI.PR ---
Subjective Remarks Patient has no complaints overnight. He is breathing comfortably. Requested a glass of water. Objective Vitals Vital Signs Date Time Temp Pulse Resp B/P (MAP) Pulse Ox O2 Delivery O2 Flow Rate FiO2 12/21/17 07:54 95 21 12/21/17 06:51 162/78 (106) 12/21/17 06:16 98.4 64 20 186/84 (118) 97 12/21/17 02:30 58 165/87 (113) 12/21/17 01:30 61 180/84 (116) 12/20/17 22:30 85 176/85 (115) 97 12/20/17 18:06 97.9 67 18 173/81 (111) 96 I/O 12/20/17 12/20/17 12/20/17 12/21/17 12/21/17 12/21/17 07:00 15:00 23:00 07:00 15:00 23:00 Intake Total 360 ml 1440 ml 360 ml 720 ml Balance 360 ml 1440 ml 360 ml 720 ml Intake Oral 360 ml 1440 ml 360 ml 720 ml # Voids 3 1 6 3 # Bowel Movements 1 Result Diagram: 12/20/17 0600 12/20/17 0600 Objective Remarks GENERAL: Well-nourished, well-developed patient. SKIN: Warm and dry. Healing 4 cm laceration on right forehead HEAD: Normocephalic. EYES: No scleral icterus. No injection or drainage. NECK: Supple, trachea midline. No JVD or lymphadenopathy. CARDIOVASCULAR: Regular rate and rhythm without murmurs, gallops, or rubs. RESPIRATORY: Breath sounds equal bilaterally, mild scattered wheezing. No accessory muscle use. GASTROINTESTINAL: Abdomen soft, non-tender, nondistended. EXTREMITIES: No cyanosis, or edema. NEUROLOGICAL: Awake, alert, and oriented x 3. Non-focal. A/P Problem List: (1) Major depressive disorder, recurrent ICD Code: F33.9 - Major depressive disorder, recurrent, unspecified (2) COPD (chronic obstructive pulmonary disease) ICD Code: J44.9 - Chronic obstructive pulmonary disease, unspecified Assessment and Plan Suicide attempt with medication overdose Patient has been maximally treated with Mucomyst in the ICU, stable She will be undergoing treatment with psychiatry for psychiatric stabilization prior to discharge Reevaluation by psychiatric attending scheduled for Saturday COPD, tobacco abuse Patient smokes 2 packs of cigarettes per day Continue scheduled duo nebs Continue NicoDerm patch Off of oxygen today Hypertension Continue metoprolol and amlodipine Adding hydrochlorothiazide for persistent BP elevation Generalized weakness Patient reports he has been weak at home as well, his overdose was a further setback Continue work with physical therapy Will follow clinically Type 2 diabetes Last hemoglobin A1c was 7.2 sliding scale insulin coverage with Accu-Cheks Diabetic diet DVT prophylaxis Kyle Trotter MD Dec 21, 2017 14:09
[2017-12-21] MEDS: HYDROCHLOROTHIAZIDE 25 MG TAB PO SCH (14:15)
[2017-12-21] MEDS: REMOVE OLD PATCH T-DERMAL SCH (21:00)
[2017-12-22] MEDS: cloNIDine HCL 0.2 MG TAB PO SCH ×3 (05:48→22:00)
[2017-12-22 06:00] VITALS: BP 184/81; PULSE 57; RESP 19; TEMP 97.8; O2SAT 97
[2017-12-22] MEDS: RESP: ALBUTEROL 2.5 MG/IPRATROPIUM 0.5 MG NEB (SCH) NEB ×2 (08:00→16:00)
[2017-12-22] MEDS: NICOTINE 21 MG/24 HR PATCH T-DERMAL SCH (09:00)
[2017-12-22] MEDS: HYDROCHLOROTHIAZIDE 25 MG TAB PO SCH (09:00)
[2017-12-22] MEDS: ASPIRIN 81 MG CHEW TAB PO SCH (09:00)
[2017-12-22] MEDS: THIAMINE HCL 100 MG TAB PO SCH (09:00)
[2017-12-22] MEDS: SERTRALINE HCL 100 MG TAB PO SCH (09:00)
[2017-12-22] MEDS: DULoxetine HCl DR 30 MG CAP PO SCH (09:00)
[2017-12-22] MEDS: PANTOPRAZOLE SOD 40 MG DELAYED RELEASE TAB PO SCH (09:00)
[2017-12-22] MEDS: BACLOFEN 10 MG TAB PO SCH ×2 (09:00→21:00)
[2017-12-22] MEDS: BUDESONIDE-FORMOTEROL 80/4.5 MCG INHALER INH SCH ×2 (09:00→21:00)
[2017-12-22] MEDS: METOPROLOL TARTRATE 100 MG TAB PO SCH ×2 (09:00→21:00)
--- NOTE | 2017-12-22 10:30 | HHI.PR ---
Subjective Remarks Follow up on patient with suicide attempt, intentional OD. Patient seen and examined. Patient reports he is feeling well. He denies any acute medical complaints. He denies any dizziness, lightheadedness or vision changes. He denies any fever or chills. He denies any chest pain or dyspnea. He denies any N/V or abdominal pain. Objective Vitals Vital Signs Date Time Temp Pulse Resp B/P (MAP) Pulse Ox O2 Delivery O2 Flow Rate FiO2 12/22/17 06:00 97.8 57 19 184/81 (115) 97 12/21/17 21:49 64 168/77 (107) 12/21/17 18:15 98.5 102 16 102/51 (68) 98 I/O 12/21/17 12/21/17 12/21/17 12/22/17 12/22/17 12/22/17 07:00 15:00 23:00 07:00 15:00 23:00 Intake Total 360 ml 720 ml 2400 ml 120 ml 480 ml Output Total 650 ml 750 ml Balance 360 ml 720 ml 1750 ml -630 ml 480 ml Intake Oral 360 ml 720 ml 2400 ml 120 ml 480 ml Output Urine Total 650 ml 750 ml # Voids 3 # Bowel Movements 1 Result Diagram: 12/20/17 0600 12/20/17 0600 Objective Remarks GENERAL: This is a well-nourished, well-developed overweight male patient, in no apparent distress. Awake and alert. Lying in bed. Appears comfortable. SKIN: No rashes, 5 cm laceration on right forehead, repaired in the ER, sutures in place, appears to be healing well. HEAD: Normocephalic. EYES: Pupils equal round and reactive. Extraocular motions intact. No scleral icterus. No injection or drainage. ENT: Nose without bleeding or purulent drainage. Airway patent. MMM. NECK: Trachea midline. CARDIOVASCULAR: Regular rate and rhythm without murmurs, gallops, or rubs. RESPIRATORY: Nonlabored. Clear to auscultation. Breath sounds equal bilaterally. No rales, wheezing or rhonchi. GASTROINTESTINAL: Abdomen soft, non-tender, nondistended. No hepato-splenomegaly , or palpable masses. No guarding. MUSCULOSKELETAL: Lower extremity weakness. No bilateral lower extremity noted. No calf tenderness. NEUROLOGICAL: Awake and alert. Cranial nerves II through XII intact. Motor and sensory grossly within normal limits. Muscle strength is intact but coordination and generalized weakness causing dysfunction. Normal speech. PSYCHIATRIC: Calm and cooperative with examination Procedures None A/P Problem List: (1) Major depressive disorder, recurrent ICD Code: F33.9 - Major depressive disorder, recurrent, unspecified (2) COPD (chronic obstructive pulmonary disease) ICD Code: J44.9 - Chronic obstructive pulmonary disease, unspecified Assessment and Plan 62-year-old male who was admitted through the ER into the ICU following a purposeful overdose of his home medications in an attempt to commit suicide. He ingested a large amount of Percocet which had Tylenol. Patient admitted to inpatient psychiatry and hospitalist services following for ongoing medical management. Suicide attempt with medication overdose Patient has been maximally treated with Mucomyst in the ICU, stable -ongoing management per psychiatric team COPD, tobacco abuse Patient smokes 2 packs of cigarettes per day -Continue scheduled duo nebs -Continue NicoDerm patch -continue to monitor respiratory status Hypertension -Continue metoprolol, HCTZ and amlodipine -Vasotec prn with parameters -continue to monitor BP and adjust treatment accordingly Generalized weakness Patient reports he has been weak at home as well, his overdose was a further setback -Continue work with physical therapy who recommends home with HHPT -obtain B12, folate, phosphorus, Vit D levels -fall precautions Type 2 diabetes Last hemoglobin A1c was 7.2 in 2011 BS 274 -patient has glipizide and NPH 26u BID listed on med rec, resume Glipizide 5mg daily, resume NPH 70/30 10u BID and will titrate up as indicated -Obtain HgbA1c level -continue on Accu-Cheks and ISS Hyponatremia -Repeat BMP Patient has multiple medications in med reconciliation that has not been updated. Have requested nursing staff please accurately update med rec. DVT prophylaxis Nayeli De Luna Dec 22, 2017 10:30
[2017-12-22] MEDS: INSULIN ASPART SUPPLEMENTAL SCALE SQ SCH ×4 (12:00→21:00)
--- NOTE | 2017-12-22 12:05 | HHI.FF ---
Face to Face Verification Diagnosis: (1) Impairment of balance (2) Gait instability Physical Therapy Order: Evaluate and Treat, Improve ambulation, Strength and gait training I have seen patient Mal Black on 12/22/17. My clinical findings support the need for the requested home health care services because: Ltd mobility - disease progression Deconditioned w/ increased weakness Limited ability to care for self Impaired cognition/judgement High risk of falls I certify that my clinical findings support that this patient is homebound because: Impaired cognitive ability/safety Unsteady gait/balance Unsafe to leave home unassisted Unable to use public transportation Nayeli Cohen Dec 22, 2017 12:05
[2017-12-22] MEDS: ENOXAPARIN SODIUM 40 MG/0.4 ML SYRINGE SQ SCH (12:15)
--- NOTE | 2017-12-22 13:51 | HHI.PYPN ---
Subjective Remarks Chart reviewed and discussed with ARIELLE Dowd. Patient in his room and watching television. He states that he is constipated and uncomfortable. He states he is eating eggs and cereal for breakfast but his sugars have been high ( covered with insulin). He is having difficulty sleeping and is trying to avoid naps during the day. Euthymic and very pleasant. Cooperative and medication compliant. Mental Status Examination Appearance: Disheveled Consciousness: Alert Orientation: Person, Place Motor Activity: Other Speech: Slow Language: Adequate Fund of Knowledge: Inadequate Attention and Concentration: Inadequate Memory: Impaired (revolving events surrounding suicide attempt) Mood: Good Affect: Euthymic Thought Process & Associations: Intact Thought Content: Appropriate Hallucination Type: None Delusion Type: None Suicidal Ideation: No Suicidal Plan: No Suicidal Intention: No Homicidal Ideation: No Homicidal Plan: No Homicidal Intention: No Insight: Fair Judgment: Impulsive Results Vitals/IOs Vital Signs Date Time Temp Pulse Resp B/P (MAP) Pulse Ox O2 Delivery O2 Flow Rate FiO2 12/22/17 06:00 97.8 57 19 184/81 (115) 97 12/21/17 07:54 21 12/20/17 09:25 Nasal Cannula 2.00 Intake and Output 12/22/17 12/22/17 12/23/17 08:00 16:00 00:00 Intake Total 600 ml Output Total 750 ml Balance -150 ml Assessment & Plan Problem List: (1) Major depressive disorder, recurrent ICD Codes: F33.9 - Major depressive disorder, recurrent, unspecified Assessment & Plan Estimated LOS: days Continue current treatment plan. Justification for Cont. Inpt. Placing patient in a lower level of care may result in his decompensation. Deja Law Dec 22, 2017 13:51
[2017-12-22] MEDS ORDERED: MAGNESIUM HYDROXIDE SUSP 30 ML CUP PO PRN (14:00)
[2017-12-22 15:45] LABS: BICARBONATE 27.3 MEQ/L (21.0-32.0); BLOOD UREA NITROGEN 18 MG/DL (7-18); CALCIUM 9.8 MG/DL (8.5-10.1); CHLORIDE 90 MEQ/L (98-107); CREATININE 1.13 MG/DL (0.60-1.30); GLOMERULAR FILTRATION RATE 66 ML/MIN (>89); GLUCOSE,RANDOM 166 MG/DL (74-106); SODIUM (NA) 128 MEQ/L (136-145)
[2017-12-22 15:46] LABS: PHOSPHORUS 3.4 MG/DL (2.5-4.9)
[2017-12-22 16:12] LABS: FOLATE 12.7 NG/ML (3.1-17.5)
[2017-12-22 17:54] VITALS: BP 148/70; PULSE 57; RESP 18; TEMP 98.3; O2SAT 96
[2017-12-22] MEDS: REMOVE OLD PATCH T-DERMAL SCH (21:00)
[2017-12-23 06:00] VITALS: BP 187/76; PULSE 55; RESP 16; TEMP 97.8; O2SAT 93
[2017-12-23] MEDS: cloNIDine HCL 0.2 MG TAB PO SCH (06:00)
[2017-12-23 06:27] VITALS: BP 125/75
[2017-12-23 07:38] VITALS: BP 165/82; PULSE 62
[2017-12-23] MEDS: NICOTINE 21 MG/24 HR PATCH T-DERMAL SCH (07:51)
[2017-12-23] MEDS: BACLOFEN 10 MG TAB PO SCH (07:51)
[2017-12-23] MEDS: THIAMINE HCL 100 MG TAB PO SCH (07:51)
[2017-12-23] MEDS: DULoxetine HCl DR 30 MG CAP PO SCH (07:51)
[2017-12-23] MEDS: HYDROCHLOROTHIAZIDE 25 MG TAB PO SCH (07:51)
[2017-12-23] MEDS: PANTOPRAZOLE SOD 40 MG DELAYED RELEASE TAB PO SCH (07:52)
[2017-12-23] MEDS: METOPROLOL TARTRATE 100 MG TAB PO SCH (07:52)
[2017-12-23] MEDS: SERTRALINE HCL 100 MG TAB PO SCH (07:52)
[2017-12-23] MEDS: ASPIRIN 81 MG CHEW TAB PO SCH (07:53)
[2017-12-23] MEDS: BUDESONIDE-FORMOTEROL 80/4.5 MCG INHALER INH SCH (07:53)
[2017-12-23] MEDS: INSULIN ASPART SUPPLEMENTAL SCALE SQ SCH ×2 (07:54→12:00)
[2017-12-23] MEDS: RESP: ALBUTEROL 2.5 MG/IPRATROPIUM 0.5 MG NEB (SCH) NEB (08:54)
[2017-12-23 09:34] LABS: BICARBONATE 25.7 MEQ/L (21.0-32.0); CALCIUM 9.4 MG/DL (8.5-10.1); CREATININE 1.25 MG/DL (0.60-1.30)
--- NOTE | 2017-12-23 10:10 | HHI.PR ---
Subjective Remarks Follow up on patient with suicide attempt, intentional OD. Patient seen and examined. Patient states he feels very good. He is hoping to be discharged today. He denies any headache, vision changes, dizziness or lightheadedness. He denies any chest pain or shortness of breath. He denies any nausea, vomiting or abdominal pain. He does report being very thirsty and has been drinking more water. He also admits to polyuria but denies any dysuria. He reports a normal BM. He denies any hx of hyponatremia. He denies any confusion or memory problems. He reports taking Glipizide 10mg at home and Novolin 18u bid. Objective Vitals Vital Signs Date Time Temp Pulse Resp B/P (MAP) Pulse Ox O2 Delivery O2 Flow Rate FiO2 12/23/17 07:38 62 165/82 (109) 12/23/17 06:27 125/75 (92) 12/23/17 06:00 97.8 55 16 187/76 (113) 93 12/22/17 17:54 98.3 57 18 148/70 (96) 96 I/O 12/22/17 12/22/17 12/22/17 12/23/17 12/23/17 12/23/17 07:00 15:00 23:00 07:00 15:00 23:00 Intake Total 120 ml 960 ml 1680 ml 240 ml 720 ml Output Total 750 ml 200 ml Balance -630 ml 960 ml 1480 ml 240 ml 720 ml Intake Oral 120 ml 960 ml 1680 ml 240 ml 720 ml Output Urine Total 750 ml 200 ml # Voids 1 # Bowel Movements 2 Result Diagram: 12/20/17 0600 12/23/17 0902 Objective Remarks GENERAL: This is a well-nourished, well-developed overweight male patient, in no apparent distress. Awake and alert. Sitting up on side of bed. SKIN: No rashes, 5 cm laceration on right forehead, repaired in the ER, sutures in place, appears to be healing well. Multiple superficial abrasions on tops of toes of both feet that patient attributes to walking too much in sandals, no e/o infection. HEAD: Normocephalic. EYES: Pupils equal round and reactive. Extraocular motions intact. No scleral icterus. No injection or drainage. ENT: Nose without bleeding or purulent drainage. Airway patent. MMM. NECK: Trachea midline. CARDIOVASCULAR: Regular rate and rhythm without murmurs, gallops, or rubs. RESPIRATORY: Nonlabored. Clear to auscultation. Breath sounds equal bilaterally. No rales, wheezing or rhonchi. GASTROINTESTINAL: Abdomen soft, non-tender, nondistended. No guarding. MUSCULOSKELETAL: Lower extremity weakness. No bilateral lower extremity noted. No calf tenderness. NEUROLOGICAL: Awake and alert. Cranial nerves II through XII grossly intact. Motor and sensory grossly within normal limits. Muscle strength is intact but coordination and generalized weakness causing dysfunction. Normal speech. PSYCHIATRIC: Calm and cooperative with examination Procedures None A/P Problem List: (1) Major depressive disorder, recurrent ICD Code: F33.9 - Major depressive disorder, recurrent, unspecified (2) COPD (chronic obstructive pulmonary disease) ICD Code: J44.9 - Chronic obstructive pulmonary disease, unspecified Assessment and Plan 62-year-old male who was admitted through the ER into the ICU following a purposeful overdose of his home medications in an attempt to commit suicide. He ingested a large amount of Percocet which had Tylenol. Patient admitted to inpatient psychiatry and hospitalist services following for ongoing medical management. Suicide attempt with medication overdose Patient has been maximally treated with Mucomyst in the ICU, stable -ongoing management per psychiatric team COPD, tobacco abuse Patient smokes 2 packs of cigarettes per day -Continue duonebs but change to prn -Continue NicoDerm patch -continue to monitor respiratory status CAD s/p CABG x 6 CHF, not in acute exacerbation Patient has no complaints of chest pain -continue on ASA 81mg daily Hypertension -Continue metoprolol, HCTZ and amlodipine -Vasotec prn with parameters -continue to monitor BP and adjust treatment accordingly Generalized weakness Patient reports he has been weak at home as well, his overdose was a further setback B12, folate, phos, vit D and TSH all WNL -Continue work with physical therapy who recommends home with HHPT -fall precautions Forehead lac s/p fall s/p suture repair -recommend sutures stay in for total of 7 days prior to removal -local wound care Type 2 diabetes Last hemoglobin A1c was 7.2 in 2011 BS 209 -resume on home dose of Glipizide -Obtain HgbA1c level/pending -continue on Accu-Cheks and ISS Hyponatremia, likely due in part hypertonic hyponatremia secondary to hyperglycemia asymptomatic -corrected Na level 130 -fluid restrictions -monitor sodium level DVT prophylaxis Nayeli De Luna Dec 23, 2017 10:10
[2017-12-23 10:51] LABS: OSMOLALITY,URINE 406 MOSM/KG (300-1300)
[2017-12-23] MEDS: ENOXAPARIN SODIUM 40 MG/0.4 ML SYRINGE SQ SCH (12:00)
[2017-12-23 12:22] LABS: SODIUM,RANDOM URINE 72 MEQ/L
[2017-12-23] MEDS ORDERED: AMLO10 PO (13:48)
[2017-12-23] MEDS ORDERED: ZOLO100T PO (13:48)
[2017-12-23] MEDS ORDERED: DULO1CAP2 PO (13:48)
[2017-12-23] MEDS ORDERED: THIA100 PO (13:48)
[2017-12-23] MEDS ORDERED: BACL10TA PO (13:48)
[2017-12-23] MEDS ORDERED: PANT40TA3 PO (13:48)
[2017-12-23] MEDS ORDERED: PRAV20TA PO (13:48)
[2017-12-23] MEDS ORDERED: METO-338 PO (13:48)
[2017-12-23] MEDS ORDERED: CLON.2 PO (13:48)
[2017-12-23] MEDS ORDERED: ALLO100T PO (13:48)
[2017-12-23] MEDS ORDERED: HYDR25TA5 PO (13:48)
[2017-12-23] MEDS ORDERED: ASPI81 PO (13:48)
[2017-12-23] MEDS ORDERED: GLIP10TA6 PO (13:48)
--- NOTE | 2017-12-23 13:48 | HHI.DS ---
Psychiatry Discharge Summary Inpatient Psychiatric care?: Yes Advance Directive: No Reason Not Provided: EDUCATION PROVIDED Mental Health AdvanceDirective: No Health Care Proxy: No Admission Admission Date Dec 18, 2017 at 17:40 Admission Diagnosis: (1) Major depressive disorder, recurrent ICD Code: F33.9 - Major depressive disorder, recurrent, unspecified Brief History Patient is a 62 y/o man, , domiciled with , unemployed on SSDI, , with past psychiatric history of depression, anxiety, alcohol use disorder, no prior psychiatric admissions, no prior suicide attempts, no prior self injurious behavior, with past medical history of COPD, DM, HTN, Hep. C, who was brought in by EMS under [facility] act after suicide attempt via overdose in the context of alcohol intoxication and leaving him for another man which he was initially admitted to the medical service for stabilization and now transferred to the inpatient psychiatry unit for further evaluation and management. Patient was found lying on hospital bed, noted to have sutured laceration above right eye, noted with some psychomotor retardation but alert and cooperative with interview. Patient states that his had decided to be with someone else and was told this two days ago. He reports that he did not have anything left to live for and "took pills and drank some liquor". He does not recall having arrived to the hospital but states that his had called EMS. He states that the day of the suicide attempts he had taken 21 tablets of oxycodone and drank 2-3 bottles of liquor. He mentions that he had been drinking for a couple of days prior and states that he had been having increasing depressed mood due to chronic pain. He states feeling disappointed to be alive and continues with SI. BAL was 252, Utox: positive for cocaine. Family psychiatric history: cousin committed suicide Past psychiatric history: prior psychiatric diagnosis of depression, anxiety, alcohol use disorder, denies prior psychiatric admissions, no prior suicide attempts or self injurious behavior, denies history of abuse. Has outpatient psychiatrist at the [place], medication regimen: bupropion 100mg BID, sertraline 200mg daily. Substance use history: alcohol use daily as stated above, denies use of any other substance. Past medical history: COPD, DM, HTN, Hep.C Allergies: Morphine Social history: , lives with , unemployed on SSDI, . Rebecca Black () [phone] 12/20/2017 Above note dictated by Dr. Somers reviewed and agreed with. Patient is admitted to Dr. Somers service under the Hanson act. Dr. Somers assigned first opinion petition supporting [facility]. Patient seen by me in his room with RN and medical student Trin[place]. Patient depressed does acknowledge suicide attempt after having a fight with his . He is vague about continued suicidality at this time. At this time I agree with Dr. Somers patient meets criteria for for involuntary psychiatric hospitalization under the [facility]on act thus I will cosign second opinion petition supporting [facility] act Tobacco Use In Past 30 Days: 4 or Less Cigarettes/Day Alcohol Use: 2-3 Times Per Week Hospital Course Patient is a 62 y/o man, , domiciled with , unemployed on SSDI, , with past psychiatric history of depression, anxiety, alcohol use disorder, no prior psychiatric admissions, no prior suicide attempts, no prior self injurious behavior, with past medical history of COPD, DM, HTN, Hep. C, who was brought in by EMS under [facility] act after suicide attempt via overdose in the context of alcohol intoxication and leaving him for another man which he was initially admitted to the medical service for stabilization and now transferred to the inpatient psychiatry unit for further evaluation and management. Patient was started on Cymbalta 30mg daily, sertraline 200mg daily and was also continued on medication regimen for chronic medical illnesses. He was maintained on CIWA protocol. Patient tolerated medications well no evidence or reported adverse drug reactions. Patient noted to start having improvement in mood, less depressed mood, no manic symptoms or psychotic symptoms noted and denied SI or HI. Patient maintained adequate personal hygiene and caring for self, improved appetite and cooperative with staff. Discussion with patient's over the phone by treatment team endorsed having no safety concerns of patient returning back home and would be supervising and supportive of patient continuing current treatment regimen as well as outpatient follow up for continuity of care. Patient was counseled on importance of abstinence from alcohol use and substance use. Recommendations were provided to patient to continue treatment and follow up appointments for continuity of care. Patient agreed to return back to her home with his . Patient has maximized benefit from this inpatient psychiatric hospital stay and will be discharged to [facility] today with follow-up as arranged by counselor. Patient advised to call 911 or go nearest ED in case of emergency. Patient agreed with plan. Results Blood Pressure 165 / 82 Vital Signs Date Time Temp Pulse Resp B/P (MAP) Pulse Ox O2 Delivery O2 Flow Rate FiO2 12/23/17 07:38 62 165/82 (109) 12/23/17 06:00 97.8 16 93 12/21/17 07:54 21 12/20/17 09:25 Nasal Cannula 2.00 Laboratory Tests Test 12/22/17 14:56 12/23/17 09:02 12/23/17 09:30 Random Glucose 166 MG/DL (74-106) 263 MG/DL (74-106) Sodium Level 128 MEQ/L (136-145) 128 MEQ/L (136-145) Chloride Level 90 MEQ/L (98-107) 90 MEQ/L (98-107) Estimat Glomerular Filtration Rate 66 ML/MIN (>89) 59 ML/MIN (>89) Blood Urea Nitrogen 19 MG/DL (7-18) Laboratory Results Test 12/22/17 14:56 Summary of Procedures none Pending results at discharge: No Medications # of Antipsychotic meds at D/C: 0 Approp Antipsych med options 1 - Minimum of three failed multiple trials of monotherapy. 2 - Documented plan to taper to monotherapy due to previous use of multiple meds OR cross-taper in progress at D/C. 3 - Documentation of augmentation of Clozapine. 4 - Justification other than those listed in allowable values 1-3, document here : Discharge Discharge Date: Dec 23, 2017 Discharge Diagnosis: (1) Major depressive disorder, recurrent ICD Code: F33.9 - Major depressive disorder, recurrent, unspecified Pt Condition on Discharge: Stable Discharge Disposition: Discharge Home Discharge Instructions Diet Instructions: As Tolerated, No Restrictions Activities you can perform: Weight Bearing as [place] Scheduled Appointment: [facility] Appointment Date: Dec 23, 2017 Appointment Time: 03:00p.m Discharge Time > 30 minutes Mental Status Examination Appearance: Appropriate Consciousness: Alert Orientation: Person, Place Motor Activity: Other Speech: Slow Language: Adequate Fund of Knowledge: Inadequate Attention and Concentration: Inadequate Memory: Impaired (revolving events surrounding suicide attempt) Mood: Good Affect: Euthymic Thought Process & Associations: Intact Thought Content: Appropriate Hallucination Type: None Delusion Type: None Suicidal Ideation: No Suicidal Plan: No Suicidal Intention: No Homicidal Ideation: No Homicidal Plan: No Homicidal Intention: No Insight: Fair Judgment: Impulsive Discharge/Advance Care Plan Health Problems: (1) Major depressive disorder, recurrent Goals to promote your health * To prevent worsening of your condition and complications * To maintain your health at the optimal level Directions to meet your goals Take your medications as prescribed Follow your dietary instruction Follow activity as directed Keep your appointments as scheduled Take your immunizations and boosters as scheduled If your symptoms worsen call your PCP, if no PCP go to Urgent Care Center or Emergency Room For 04/02 questions related to your inpatient stay or results of tests pending at discharge, please contact Dr. Jamil Somers at Smoking is Dangerous to Your Health. Avoid second hand smoking Jamil Somers MD Dec 23, 2017 13:48
[2017-12-23] MEDS ORDERED: PRAVASTATIN SOD 20 MG TAB PO SCH (21:00)
[2017-12-24] MEDS ORDERED: glipiZIDE 10 MG TAB PO SCH (09:00)
[2017-12-24] MEDS ORDERED: ALLOPURINOL 100 MG TAB PO SCH (09:00)
== END 2017-12-23 14:10 | disposition home or self-care (01) | DRG 885 ==
LOC: H4EA 17:40
PROVIDERS: ADMIT Student in an Organized Health Care Education/Training Program; ATTEND Student in an Organized Health Care Education/Training Program
DX: F33.9 Major depressive disorder, recurrent, unspecified (principal); E87.1 Hypo-osmolality and hyponatremia; I10 Essential (primary) hypertension; T39.1X2A Poisoning by 4-Aminophenol derivatives, intentional self-harm, initial encounter; J44.9 Chronic obstructive pulmonary disease, unspecified; E11.9 Type 2 diabetes mellitus without complications; F41.9 Anxiety disorder, unspecified; F17.210 Nicotine dependence, cigarettes, uncomplicated; Z86.19 Personal history of other infectious and parasitic diseases
CPT/HCPCS: 80048; 82306; 82607; 82746; 82948; 83036; 83930; 83935; 84100; 84300; 85025; 94640; 94664; J1650; J1815